=== PATIENT | male | born 1960 | race Caucasian/White ===

== ENCOUNTER 2024-06-30 13:17 | Inpatient (IN) | payer MEDICARE, OTHER, SELFPAY ==
[2024-06-30 11:02] LABS: Glucose - Point of Care 318 mg/dl (70-99)
[2024-06-30 11:04] VITALS: BMI 26.8
[2024-06-30 11:05] VITALS: BP 162/90
--- NOTE | 2024-06-30 11:05 | ED.CVA ---
History of Present Illness
General
Chief Complaint: CVA/TIA Symptoms
Source: patient and ambulance crew
Exam Limitations: none
Time Seen by Provider: 06/30/24 11:01
Onset of Stroke Symptoms
Onset of symptoms known: No
Time pt last seen normal is known: No
History of Present Illness
History of Present Illness:
64yoM with a history of hypertension, hyperlipidemia, and prediabetes presenting via EMS for evaluation of stroke symptoms. Patient reports waking up with tingling on his left side several days ago. His roommate saw him last night sitting on a
chair but he was not saying much. Patient states he felt like he was drunk this morning and was off balance but denies drinking any alcohol. Roommate found him on the ground this morning with left-sided weakness and EMS was activated. Glucose was
37 prehospital and he was given dextrose with improvement. His left-sided weakness has improved but he continues to have a facial droop. He does not take any blood thinners.
Phy Exam
General Physical Exam
General Presentation: well appearing
General age: appears stated age
General Skin: warm and dry
General Habitus: normal
General Mental: alert
ENT Exam
ENT Exam: normocephalic and other (No external signs of head trauma. No cervical spine tenderness.)
Eye Exam
Eye Exam: PERRL, EOMI and conjunctiva normal
Cardiovascular Exam
Cardiovascular Exam: regular rate/rhythm
Pulmonary Exam
Pulmonary Exam: lungs clear, no respiratory distress, no rales, no crackles and no rhonchi
Neurological Exam
Neurological Exam: alert and other (L facial droop noted with mild dysarthria. No drift in LUE/LLE. It takes several attempts for patient to follow commands.)
NIH Stroke Score
Level of Consciousness: 0 - Alert
LOC questions: 0-Answers both correctly
LOC Commands: 0-Performs both correctly
Best Gaze: 0-Normal
Visual [place]: 0=Normal, no visual loss
Facial palsy: 1=Minor paralysis
Motor - Right Arm: 0=No drift 10 seconds
Motor - Left Arm: 0=No drift 10 seconds
Motor - Right Le-No drift 5 seconds
Motor - Left Le-No drift 5 seconds
Limb Ataxia: 0-Absent
Sensation: 0-Normal
Best Language: 0-No aphasia
Dysarthria: 1-Mild slurring
Extinction and Inattention: 0-No abnormality
Total Score:: 2
[place] Coma Scale
Eye Opening: Spontaneous
Verbal Response: Oriented
Motor Response: Obeys Commands
GCS Total Score: 15
Skin Exam
Skin Exam: normal color and warm/dry
Psychiatric Exam
Psychiatric Exam: normal mood/affect
Course
Orders/Labs/Results
Orders:
Orders
06/30/24 11:01
CT Head & Neck Angio W/wo IV Urgent
Comment:
Reason For Exam: L sided weakness, facial droop
Cardiac Monitoring- Treatment ONCE
06/30/24 11:02
Electrocardiogram (*1) Urgent
Reason for Study: TIA/Stroke
EKG- Treatment ONCE
06/30/24 11:03
Urinalysis Reflex To Culture Urgent
CR Chest Portable - 1 View Urgent
Comment:
Reason For Exam: CVA
Reason Study Needs to be Portable: Unable to Transport
06/30/24 11:12
Complete Blood Count/With Diff Urgent
Comprehensive Metabolic Panel Urgent
PTT Urgent
Prothrombin Time Urgent
Total CK [Creatine Phosphokinase] Urgent
Troponin I Urgent
06/30/24 11:25
NEUROLOGY CONSULT Urgent
Consulting Provider: Cornelio Wilson
Was physician already notified: Yes
06/30/24 12:21
Aspirin Chewable [Low Strength Aspirin] 324 mg PO NOW STA
Clopidogrel Bisulfate [Plavix] 300 mg PO NOW STA
Carotid US [US Cerebrovascular] Routine
Comment:
Reason For Exam: right carotid
06/30/24 12:55
Admit/Transfer Patient As Directed
Co-Sign Provider:
Level of Care: Inpatient admission
Assign to:: Telemetry
Physician / Group: tony
Diagnosis: CVA
Reason for Telemetry: CVA/TIA
Date to Stop Telemetry: 07/03/24
Time to Stop Telemetry: 11:00
Reason for Hospitalization: CVA
Expected length of stay greater than two midnights?: Yes
ELOS- Estimated Length of Stay in days: 3
I certify the patient meets the requirements for IP care: Yes
PRN Pain Medication Management As Directed
May give lesser potent ordered pain med per pt: Yes
preference::
Protocol:: Medication orders for pain may be administered in a
manner that supports deferring to patient preference
when the pt is:
- Requesting an ordered lesser potent pain medication.
Least to most potent pain medications are defined
as: acetaminophen < NSAID < tramadol < opioids
(morphine, oxycodone, hydromorphone).
- Requesting a lesser dose of the same medication IF
ORDERED.
- Requesting a less intrusive route of administration
if both routes are prescribed by the provider (PO <
IV).
06/30/24 12:56
Code Status As Directed
Resuscitation Status: Full Code
06/30/24 18:00
Atorvastatin [Lipitor] 80 mg PO QPM
07/01/24 08:00
Aspirin Low Dose EC [Aspir Low (Enteric Coated)] 81 mg PO DAILY
Clopidogrel Bisulfate [Plavix] 75 mg PO DAILY
07/03/24 11:00
DC Protocol for Telemetry ONCE
Abnormal Lab Results
06/30/24 06/30/24
11:01 11:12
Abs Immat Gran (auto) 0.1 H 10^3/uL
(0-0.05)
Immature Gran % 0.8 H %
(0-0.5)
Sodium 134 L mmol/L
(135-145)
Potassium 5.3 H mmol/L
(3.5-5.1)
Glucose 314 H mg/dl
(70-99)
POC Glucose 318 H mg/dl
(70-99)
06/30/24 11:12
06/30/24 11:12
Vital Signs
Initial and Last Documented VS:
Initial Vital Signs
Pulse Resp Pulse Ox
83 17 97
06/30/24 11:04 06/30/24 11:04 06/30/24 11:04
Last Documented Vital Signs
Temp Pulse Resp BP Pulse Ox
98 F 90 16 155/95 95
06/30/24 11:05 06/30/24 13:00 06/30/24 13:09 06/30/24 13:00 06/30/24 12:00
MDM/Problems Addressed
Differential Diagnosis Includes:
64yoM presenting as a prehospital stroke alert. Started with L sided paresthesias a few days ago. [place] like he was drunk this morning and L sided weakness. Glucose 37 prehospital and he was given dextrose with improvement of his weakness. VSS,
Glucose 318 on arrival. There is a L sided facial droop and mild dysarthria noted. No extremity drift. Differential diagnosis includes but is not limited to: CVA, symptomatic hypoglycemia, traumatic intracranial hemorrhage
Initial ED plan: Check cardiac labs, coags, EKG, and CTA head/neck. Neurology at bedside on arrival.
*EKG
Interpreted by ED Provider?: Yes
EKG Intrepretation Date: 06/30/24
Heart Rate: 89
Rate: normal
Rhythm: sinus
[place]: normal axis
Interval: normal interval
QRS Pattern: normal QRS
Ischemia: no ischemia
*Critical Care Note
Total Time (30-74mins, 75-104mins- exclusive of procedures): Not Applicable
Update Note
Update Note:
Imaging shows evolving infarct in the R MCA territory. There is also an occlusion of the R ICA just distal to its origin as well as a distal R M1 occlusion. Neurology recommending DAPT and carotid ultrasound to determine if patient needs a
vascular surgery consult. Patient admitted for further management.
ED Attending Note
-
Portions of this chart may have been created with voice recognition software.� Occasional wrong word or��sound alike� substitutions may have occurred due to the inherent limitations of voice recognition software.
Discharge Plan
Departure
Patient Disposition: Admit
Date of Disposition: 06/30/24
Time of Disposition: 12:34
Presentation/result/management discussed w/ accepting MD/DO: Hospitalist
Discharge Problem:
Acute ischemic right MCA stroke
Interventions
Interventions:
*Risk Screen - Suicide Last Done: 06/30/24 11:08
*General Assessment Last Done: 06/30/24 11:17
*Neglect/Abuse Screening Last Done: 06/30/24 11:08
*ED- Fall Risk Assessment Last Done: 06/30/24 11:07
*ED COVID-19 Vaccine History Last Done: 06/30/24 11:07
ED- Pulmonary Assessment Last Done: 06/30/24 11:10
ED- Neurological Assessment Last Done: 06/30/24 11:03
ED- Cardiac Assessment Last Done: 06/30/24 11:10
ED Swallowing Screen Last Done: 06/30/24 11:35
[2024-06-30 11:24] LABS: % Basophils 1.4 % (0-2); % Eosinophils 2.8 % (0-6); % Immature Granulocytes 0.8 % (0-0.5); % Lymphocytes 28.9 % (20.5-51.1); % Monocytes 7.9 % (1.7-9.3); % Neutrophils 58.2 % (42.2-75.2); Absolute Basophils 0.1 10^3/uL (0-0.2); Absolute Eosinophils 0.2 10^3/uL (0-0.7); Absolute Immature Granulocytes 0.1 10^3/uL (0-0.05); Absolute Lymphocytes 2.2 10^3/uL (1.2-3.4); Absolute Monocytes 0.6 10^3/uL (0.1-0.6); Absolute Neutrophils 4.4 10^3/uL (1.4-6.5); Hematocrit 44.7 % (39.0-52.0); Hemoglobin 15.3 g/dL (13.0-18.0); Mean Corp Hgb Conc. 34.2 g/dL (33.0-37.0); Mean Corpuscular Hgb 30.7 pg (27.0-31.0); Mean Corpuscular Volume 89.8 fL (80.0-94.0); Mean Platelet Volume 9.2 fL (7.4-10.4); Nucleated Red Blood Cells % 0 % (-); Platelet Count 285 10^3/uL (130-400); Red Blood Cell Count 4.98 10^6/uL (4.70-6.10); Red Cell Dist. Width 12.9 % (11.5-14.5); White Blood Cell Count 7.6 10^3/uL (4.8-10.8)
[2024-06-30 11:33] LABS: ALT (SGPT) 18 U/L (0-50); AST (SGOT) 22 U/L (17-59); Albumin 4.6 g/dl (3.5-5.0); Alkaline Phosphatase 60 U/L (38-126); Blood Urea Nitrogen 15 mg/dl (9-20); Calcium 9.9 mg/dl (8.4-10.2); Carbon Dioxide 26 mmol/L (22-30); Chloride 99 mmol/L (98-107); Creatine Phosphokinase 70 U/L (55-170); Estimated Creatinine Clearance 88 ml/min; Glucose 314 mg/dl (70-99); Potassium 5.3 mmol/L (3.5-5.1); Sodium 134 mmol/L (135-145); Total Bilirubin 0.7 mg/dl (0.2-1.3); Total Protein 7.5 g/dl (6.3-8.2); eGFR > 60.00
--- NOTE | 2024-06-30 11:34 | CON.NEURO ---
Neuro Assessment/Plan
Assessment
Head CT imgs reviewed, hypodensity right frontal consistent with several days old stroke
CTA imgs rev'd, right ICA occlusion; distal right M1 occlusion
Stroke, large vessel etiology
not a TNK candidate unclear onset
Plan
ASA 324 + 81 daily
Plavix 300 + 75 x90 days
Lipitor 80
right ICA occlusion check carotid ultrasound, if there is any flow on the dopper then vascular surgery consult; if it is indeed 100% occluded then no intervention.
for large vessel intracranial disease, medical management was superior to stenting in [facility] trial
Consultation
Order
Date of Consultation: 06/30/24
Requesting Provider: Lorna Brown
Reason for Consult: stroke alert
Subjective/Objective
Subjective Data
Date of Service: June 30, 2024
from ED notes:
64yoM with a history of hypertension, hyperlipidemia, and prediabetes presenting via EMS for evaluation of stroke symptoms. Patient reports waking up with tingling on his left side several days ago. His roommate saw him last night sitting on a
chair but he was not saying much. Patient states he felt like he was drunk this morning and was off balance but denies drinking any alcohol. Roommate found him on the ground this morning with left-sided weakness and EMS was activated. Glucose was
37 prehospital and he was given dextrose with improvement. His left-sided weakness has improved but he continues to have a facial droop. He does not take any blood thinners.
He was given glucose and substantially improved
Objective Data
Vital Signs
Temp Pulse Resp BP Pulse Ox
36.6 C 82 16 162/90 97
06/30/24 11:05 06/30/24 11:05 06/30/24 11:24 06/30/24 11:05 06/30/24 11:05
Lab Results
06/30/24 11:12
06/30/24 11:12
Sodium 134 mmol/L (135-145) L 06/30/24 11:12
Potassium 5.3 mmol/L (3.5-5.1) H 06/30/24 11:12
BUN 15 mg/dl (9-20) 06/30/24 11:12
Glucose 314 mg/dl (70-99) H 06/30/24 11:12
Calcium 9.9 mg/dl (8.4-10.2) 06/30/24 11:12
Patient Allergies
NKA - No Known Allergies Allergy (Uncoded 07/14/07 10:35)
[2024-06-30 11:37] LABS: INR 0.99; PT 13.4 Sec (11.4-14.6)
[2024-06-30 11:38] LABS: APTT 24.3 Sec (23.4-35.0)
[2024-06-30 11:43] LABS: Troponin I < 0.012 ng/ml
[2024-06-30 12:00] VITALS: BP 141/84
--- NOTE | 2024-06-30 12:36 | HPS.HSE ---
Family Physician
-
Family Physician: * NONE
Chief Complaint
-
left sided weakness
History of Present Illness
64yoM with a history of hypertension, hyperlipidemia, and prediabetes presenting via EMS for evaluation of left sided weakness, off balance. patient stated tingling to his left hand a week ago. today he was off balance and noted to have left sided
weakness. he was not able to walk, so he lowered himself to crawl on the floor.patient stated dull BARRETT. denied dizzy or syncope. denied fever, chills, chest pain, sob. denied abdominal pain,n,v,d. denied dysuria or hematuria.
CT with the impression of Evolving nonhemorrhagic in the right middle cerebral artery territory.
Occlusion of the right internal carotid artery just distal to its origin with some possible minimal reconstitution via collaterals mid and distally.
No findings to suggest hemodynamically significant atherosclerosis of the proximal left internal carotid artery or findings to suggest left internal carotid artery dissection.
Patent anterior communicating artery with blood flow within the proximal intracranial internal vasculature bilaterally. Distal right M1 occlusion with some reconstitution of blood flow via collaterals distally.
Mildly dominant right vertebral artery. No findings to suggest vertebral artery dissection bilaterally.
Patient received aspirin, statin, Plavix in ER. Carotid arterial ultrasound ordered. UA ordered in ER. Admitted for further management
Medical History
Past Medical History
Past Medical History: Reports Other
Additional Past Medical History:
Hypertension
Hyperlipidemia
Past Surgical History: Reports Other
Additional Past Surgical History:
Wrist surgery
Social History
Tobacco: Smoker (1-2 times daily)
Alcohol: Occasional
Drug: None
Personal: Single
Living: With Roomate
Family History
Family History: Not pertinent
Allergies / Home Medications
Allergies reflects when Allergies were last updated in [employer].
Home Medications with original date entered in [employer]
Allergy/Medication List:
Allergies
Allergy/AdvReac Type Severity Reaction Status Date / Time
NKA - No Known Allergies Allergy Uncoded 07/14/07 10:35
Home Medications
No Meds [No Current Medications] 06/30/24
Review of Systems
-
Constitutional: Reports No Symptoms
EENT: Reports No Symptoms
Respiratory: Reports No Symptoms
Cardiac: Reports No Symptoms
Abdomen/GI: Reports No Symptoms
: Reports No Symptoms
Musculoskeletal: Reports No Symptoms
Skin: Reports No Symptoms
Neurological: Reports Weakness (Left-sided weakness)
Endocrine: Reports No Symptoms
Hematologic/Lymphatic: Reports No Symptoms
Psych: Reports No Symptoms
Physical Exam
Vital Signs
Vital Signs
Temp Pulse Resp BP Pulse Ox
98 F 86 20 141/84 95
06/30/24 11:05 06/30/24 12:00 06/30/24 12:00 06/30/24 12:00 06/30/24 12:00
Physical Exam
General: Well Developed, Well Nourished and No Apparent Distress
HEENT: NormoCephalic, Moist mucous membranes and Atraumatic
Respiratory: Clear
Cardiac: S1/S2 and Regular Rhythm; No Murmur or Rub
GI: Soft, Non Tender, Non Distended and Normal Bowel Sounds; No Organomegaly
Rectal: Deferred by Provider
Musculoskeletal: No Clubbing, No Cyanosis and No Edema
Skin: No Rash
Neuro: Nonfocal/grossly intact and Other (Left facial droop)
Laboratory Results
-
06/30/24 11:12
06/30/24 11:12
Laboratory Results
PT 13.4 Sec (11.4-14.6) 06/30/24 11:12
INR 0.99 06/30/24 11:12
APTT 24.3 Sec (23.4-35.0) 06/30/24 11:12
Total Bilirubin 0.7 mg/dl (0.2-1.3) 06/30/24 11:12
AST 22 U/L (17-59) 06/30/24 11:12
ALT 18 U/L (0-50) 06/30/24 11:12
Alkaline Phosphatase 60 U/L (38-126) 06/30/24 11:12
Troponin I < 0.012 ng/ml 06/30/24 11:12
Data Reviewed
-
CT Scan: Report Reviewed by me
Lab Data: Labs Reviewed by me
Impression/Plan
-
# Left-sided paresthesias/left-sided weakness secondary to MCA infract with right ICA occlusion
- Aspirin plus Plavix
- Carotid ultrasound
- Obtain A1c, lipid profile
- PT/OT consulted
- Neurology evaluation
- Head neck CTA with impression of evolving nonhemorrhagic in the right middle cerebral artery territory.Occlusion of the right internal carotid artery just distal to its origin with some possible minimal reconstitution via collaterals mid and
distally.No findings to suggest hemodynamically significant atherosclerosis of the proximal left internal carotid artery or findings to suggest left internal carotid artery dissection.Patent anterior communicating artery with blood flow within the
proximal intracranial internal vasculature bilaterally. Distal right M1 occlusion with some reconstitution of blood flow via collaterals distally.Mildly dominant right vertebral artery. No findings to suggest vertebral artery dissection bilaterally.
# Pseudo hyponatremia/hyperkalemia likely dehydration
- Sodium 134, potassium 5.3
-Corrected sodium 139
-Fluids
-BMP in a.m.
# Hyperglycemia/prediabetes
-as per ER note he was hypoglycemic, received dextrose by EMS
-Blood sugar elevated in 300s
-Sliding scale
-CHO diet
# Essential hypertension
# Hyperlipidemia
-non compliance with meds
# Nicotine dependence
Smokes-2 pack daily
- Nicotine patch
-Encourage smoking cessation
#DVT prophylaxis
- SCDs
# CODE STATUS
- Full code
[2024-06-30] MEDS: PLAVIX 300 MG PO (12:40)
[2024-06-30] MEDS: LOW STRENGTH ASPIRIN 324 MG PO (12:40)
[2024-06-30 13:00] VITALS: BP 155/95
--- NOTE | 2024-06-30 13:10 | W.PN.UPDATE ---
Update Note
Progress Note Update
This is an addendum to the H&P dictated by Gilberto Gauthier on 06/30/2024.
I saw and examined the patient.
The ELEVATOR WORKER or PA's note was reviewed and I agree with the note.
Comment:
Patient is 64 years old male history of hypertension, hyperlipidemia, borderline prediabetes, smoker, came into the hospital with numbness left side of his body. Patient has been experiencing paresthesias for several days and this morning he woke
up being dizzy off balance with left-sided weakness. LKN last night. Glucose prehospital 37 and given glucose with improvement. Denies chest pain or shortness of breath. Denies fevers or chills. He had a CTA of the head and neck with
significant right carotid stenosis. Neurology consulted in the ED. He was referred to hospitalist for further evaluation.
Physical exam:
General: Acutely ill
HEENT: Normocephalic, Atraumatic and Moist Mucous Membranes
Respiratory: Clear to Auscultation; Negative Wheezes, Rales or Rhonchi
Cardiac: Regular Rhythm and S1/S2
GI: Soft, Nontender and Nondistended
Musculoskeletal: No Clubbing, No Cyanosis and No Edema
Neuro: Awake, Alert and Oriented, left cranial nerve deficit, no focal weakness, no sensory deficit
Psych: Calm
A/P:
Stroke--> antiplatelets, statins, carotid ultrasound to evaluate if candidate for revascularization or not. Neurology consult. NIH score. PT OT luciano. Will give further recommendations based on his clinical course.
[2024-06-30 14:37] VITALS: BP 151/80
--- NOTE | 2024-06-30 15:45 | CM ---
Addendum entered by ALISON Perry 06/30/24 16:08:
went back to see if patient has his medicare card. He does not. only has Social security card.
Original Note:
Met patient in room and reviewed chart. Patient was not able to answer all questions. This may be due to his being hard of hearing or the CVA.
He did say he does have Medicare. He is retired, drives. [facility] P[facility] is [facility] [place]. He was able to produce his [facility] healthcare card. Copies made and provided to Admissions with request they call and report his admit since VA is secondary to his
Medicare.
Patient said he rents a room in his house to Rell who called EMS when he was found on floor. CM received permission to speak to Rell. 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 He is now retired and his Medicare card is in
his cell phone portfolio.
Rell phone is [phone].
Rell knows patient has a brother but does not have any phone number for him.
Discharge needs unknown at this time. Stroke work up in place.
CM to follow for needs at discharge.
--- NOTE | 2024-06-30 15:52 | PTOTSP ---
Speech Therapy
Presentation Patient's speech appeared to be dysarthric (imprecise consonant production) which does not appear to impact intelligiblity. Patient denied communicative deficits. Noted left sided weakness; patient stated this has been going on for
about [address] STREET PHOTOGRAPHER observed patient with several bites of cracker and sips of thin liquid in which patient appeared to tolerate as he did not exhibit any overt clinical s/sx of aspiration or difficulty with mastication/ manipulation. Patient denied
dysphagia complaints.
Recommendations:
1) Regular consistency solids and thin liquids
2) Aspiration precautions
3) Medications as tolerated
4) Consider cognitive and/or speech language evaluation
Plan: STREET PHOTOGRAPHER will continue to follow to ensure tolerance of diet and possible additional evaluations ; pending hospitalization.
[2024-06-30 16:15] LABS: Glucose - Point of Care 108 mg/dl (70-99)
[2024-06-30] MEDS: NICODERM TRANSDERMAL 21 MG TRANSDERM (17:13)
[2024-06-30] MEDS: LIPITOR 80 MG PO (17:14)
[2024-06-30 19:40] VITALS: BP 142/84
[2024-06-30 21:16] LABS: Glucose - Point of Care 114 mg/dl (70-99)
--- NOTE | 2024-06-30 22:45 | RR ---
A Rapid Response was called on this patient, please see Rapid Response form.
While checking on pt noted that he was not able to answer questions and unable to move his L arm. He was also unable to lift L leg and had L sided inattention which was not noted on previous assessment. NIH 15 and was previously 4. BS 114. VSS.
RR and stroke alert called. Pt sent to CT scan.
[2024-06-30 23:00] VITALS: BP 139/75
--- NOTE | 2024-06-30 23:18 | RR ---
A Rapid Response was called on this patient, please see Rapid Response form.
Stroke alert called by primary RN due to left sided neglect/flaccid upper/lower extrem.
slight partial facial droop appreciated on L side.
Taken for STAT head CT.
Returned to pt. room.
[2024-07-01] VITALS (12 sets, daily range): BP systolic 110–159; BP diastolic 69–97; PULSE 90–91; O2SAT 82–93; BMI 25.4
--- NOTE | 2024-07-01 03:18 | W.PN.UPDATE ---
Update Note
Progress Note Update
While checking on pt nurse noted that he was not able to answer questions and unable to move his L arm. He was also unable to lift L leg and had L sided inattention which was not noted on previous assessment. NIH 15 and was previously 4. BS 114.
VSS. RR and stroke alert called. Pt sent to CT scan. Result shows evolving right MCA territory infarct with a more conspicuous larger area of infarct seen in the right frontal temporal lobe compared to prior. No evidence of intracranial hemorrhage.
Hyperattenuation of the right MCA correlating with thrombus as seen previously continues. Dr. Cornelio Wilson neurology service notes his evolving CVA has been going on for days and he is out of the window for TNK or other aggressive measures.
[2024-07-01 04:38] LABS: Urine Albumin 1+ (Neg - Trace); Urine Bilirubin Negative (Negative); Urine Character Clear (Clear); Urine Color Yellow; Urine Glucose 2+ (Negative); Urine Ketone Negative (Negative); Urine Leukocyte 1+ (Negative); Urine Nitrite Negative (Negative); Urine Occult Blood Negative (Negative); Urine Urobilinogen 1+ (Neg - 1+)
[2024-07-01 05:43] LABS: Urine Squamous Cell 0-2 /LPF (Few)
[2024-07-01 05:44] LABS: Urine Bacteria Few (Negative); Urine Red Blood Cell 0-2 /HPF (0-2)
--- NOTE | 2024-07-01 06:02 | PTCARENOTE ---
Pt attempting to get out of bed through the night but does not realize that he is unable due to his L sided paralysis. Stated he had to go to the bathroom and did not want to use the urinal. Attempted and assisted to side of bed with assist of 2
people after explanation but unable to void. Bladder scanned for 408 and straight cathed for 420ml zander urine as per order. Bed alarm placed for pt safety and bed in lowest position. NIH as documented.
[2024-07-01 06:08] LABS: Glucose - Point of Care 125 mg/dl (70-99)
[2024-07-01 06:53] LABS: Blood Urea Nitrogen 14 mg/dl (9-20); Calcium 9.3 mg/dl (8.4-10.2); Carbon Dioxide 20 mmol/L (22-30); Chloride 102 mmol/L (98-107); Estimated Creatinine Clearance 100 ml/min; Glucose 125 mg/dl (70-99); HDL Cholesterol 47 mg/dl; LDL Cholesterol, Calculated 100 mg/dl; Potassium 4.4 mmol/L (3.5-5.1); Sodium 134 mmol/L (135-145); Total Cholesterol 187 mg/dl (50-199); Triglyceride 202 mg/dl (10-149); Very Low Density Lipoprotein 40 mg/dl (0-30); eGFR > 60.00
--- NOTE | 2024-07-01 07:29 | W.PN.HOSP.TC ---
Addendum entered and electronically signed by Clive Cuevas MD 07/01/24 17:33:
will do echo and mri in am
Addendum entered and electronically signed by Clive Cuevas MD 07/01/24 15:07:
Reevaluated patient along with neurology due to staring spells and some shakiness in left arm. Neuro recommends EEG in am and hold on AED for now.
Original Note:
Today's Communication/Plan
-
Antiplatelet. Monitor neurological status.
Assessment / Plan
Assessment / Plan
Physical exam:
General: Acutely ill
HEENT: Normocephalic, Atraumatic and Moist Mucous Membranes
Respiratory: Clear to Auscultation; Negative Wheezes, Rales or Rhonchi
Cardiac: Regular Rhythm and S1/S2
GI: Soft, Nontender and Nondistended
Musculoskeletal: No Clubbing, No Cyanosis and No Edema
Neuro: Awake, Alert and Disoriented, left facial droop, left hemiparesis.
Psych: Limited insight
A/P:
Acute worsening ischemic stroke:
Etiology likely large vessel in right MCA territory
Seen CTA of the head and neck and CT scan.
Repeat CT head in 24 hours
Not a candidate for TNK per neurology due to out of time window
PT OT speech therapy eval
If unable to swallow we will do aspirin rectally
Transfer to higher level of care today
N.p.o. and IV fluids for now
If no improvement over 24 hours would consider NG tube
Follow-up further neurology recommendation
Prognosis guarded
Right internal carotid stenosis:
Correlation with his acute stroke
Plan for carotid ultrasound and if complete occlusion no need for any interventions, but if not then might need vascular surgery evaluation
Hyponatremia:
Monitor sodium
Hyperkalemia:
Resolved
Prediabetes mellitus:
Insulin sliding scale
Hyperlipidemia:
Continue statin
Smoker:
On nicotine patch
DVT prophylaxis:
Start Lovenox SQ
CODE STATUS:
Full code
Total Critical Care Time__45___ minutes. I was immediately available to the patient and staff. I personally examined, reviewed labs, diagnostic images/reports, interpretations, treatment plans, discussed patient care with other providers and
family or caregivers (if patient is unable to make decisions), entered orders as appropriate and documented the medical record.
Anticipated Discharge: > 48 hours
Subjective/Interval History
-
Date of Service: July 01, 2024
Patient worsened overnight. He now has had dense left hemiparesis. Alert and slurred speech. Afebrile
Objective Data
-
Labs:
Laboratory Results
07/01/24
05:36
Sodium 134 L
Potassium 4.4
Chloride 102
Carbon Dioxide 20 L
BUN 14
Creatinine 0.7
Glucose 125 H
Calcium 9.3
Vital Signs:
Vital Signs
Temp Pulse Resp BP Pulse Ox
97.8 F 99 20 118/73 95
07/01/24 03:26 07/01/24 03:26 07/01/24 03:26 07/01/24 03:26 07/01/24 03:26
I&O
06/30/24 07/01/24 07/02/24
06:59 06:59 06:59
Intake Total 480 / 480
Output Total 700 / 700
Balance -220 / -220
[2024-07-01 09:34] LABS: Glycohemoglobin (HgbA1c) 5.4 % (4.0-5.6)
[2024-07-01] MEDS: NICODERM TRANSDERMAL 21 MG TRANSDERM (10:39)
[2024-07-01] MEDS: ASPIR LOW (ENTERIC COATED) PO (10:39)
[2024-07-01] MEDS: NSS 1000 IV ×2 (12:03→23:25)
[2024-07-01 12:08] LABS: Glucose - Point of Care 114 mg/dl (70-99)
--- NOTE | 2024-07-01 12:34 | PTCARENOTE ---
Rec'd pt from 4W for worsning CVA symptoms. Vital signs stable. Pt with left arm flacid, left leg weak, normal sensation. Resting comfortably at this time.
--- NOTE | 2024-07-01 13:51 | W.PN.NEURO.1 ---
Today's Communication / Plan
-
Carotid U/S in AM
Neuro Assessment/Plan
Assessment
Head CT imgs reviewed, hypodensity right frontal consistent with several days old stroke
CTA imgs rev'd, right ICA occlusion; distal right M1 occlusion, can't access the M1 for thrombectomy through an occluded carotid
Stroke, large vessel etiology
not a TNK candidate unclear onset
Stroked more in the early am 07/01, still not a TNK candidate for this evolving stroke
Plan
ASA 81 daily
Plavix 75 x90 days
Lipitor 80
right ICA occlusion check carotid ultrasound, if there is any flow on the dopper then vascular surgery consult though I'm not sure there's much point now that he's complete left hemiparesis; if it is indeed 100% occluded then no intervention.
Subjective/Objective
Subjective Data
Date of Service: July 01, 2024
last night patient NIHSS worsened from 4 to 15, had head CT showing evolving R MCA stroke with larger infarct
Objective Data
Vital Signs
Temp Pulse Resp BP Pulse Ox
37.4 C 86 18 159/69 94
07/01/24 12:04 07/01/24 11:00 07/01/24 11:00 07/01/24 11:00 07/01/24 11:00
Lab Results
06/30/24 11:12
07/01/24 05:36
PT 13.4 Sec (11.4-14.6) 06/30/24 11:12
INR 0.99 06/30/24 11:12
APTT 24.3 Sec (23.4-35.0) 06/30/24 11:12
Sodium 134 mmol/L (135-145) L 07/01/24 05:36
Potassium 4.4 mmol/L (3.5-5.1) 07/01/24 05:36
BUN 14 mg/dl (9-20) 07/01/24 05:36
Glucose 125 mg/dl (70-99) H 07/01/24 05:36
Calcium 9.3 mg/dl (8.4-10.2) 07/01/24 05:36
LDL Cholesterol, Calc 100 mg/dl 07/01/24 05:36
Patient Allergies
NKA - No Known Allergies Allergy (Uncoded 07/14/07 10:35)
Physical Exam
-
AAO x3, speech soft, clear, language intact
Visual guaman - unable to clearly assess
EOMI, dense left facial droop
Left side flacid
[2024-07-01] MEDS: ASPIRIN 300 MG RECTAL (14:26)
--- NOTE | 2024-07-01 14:46 | PTCARENOTE ---
Pt with intermittent staring episodes and some confusion. RN updated Dr. Cuevas and Dr. Wilson via TT
--- NOTE | 2024-07-01 15:25 | PTOTSP ---
Speech Therapy
Patient had a decline in his mental status (06/30) in which patient was transferred to IMU. Orders received.
07/01 chart, patient's temp is 99.4F, WBC is WNL (7.6), and is NPO (due to mental status).
06/[address]: 'Progression of evolving nonhemorrhagic infarct in the right MCA territory in comparison to study earlier in same day.
ASPECT score: 9'
NIH score was 15 this AM which is drastic from NIH 4 06/30.
Presentation: Patient was oriented to self and location. Not oriented to date or year. Patient's speech appeared to be more dysarthric than it was 06/30, characterized by imprecise consonant production, low volume, and short utterances. Patient also
demonstrated an increased left sided facial droop and extremity weakness in comparison to 06/30 session.
Swallowing: METER/RELAY TECHNICIAN trialed ice chips x4 in which patient demonstrated intermittent wet, weak coughing episodes, prolonged oral containment, and delayed swallow response.
Trials ended when patient's mentation appeared to worsen as he abruptly gazed off to the left side, unable to answer questions, and appeared lethargic. This lasted ~1 minute and the patient returned back to his mental state. METER/RELAY TECHNICIAN asked him
orientation questions in which patient was slow to respond but was able to reply with his name and location. Patient stated he did not recall the episode of lethargy.
Given his worsening Head CT, wax/wane alertness, and overall clinical presentation, recommend NPO at this time. MD and RN aware.
Recommendations:
1) NPO
2) Aspiration precautions
3) Vigorous oral care
4) Medications not by mouth
5) Consider VSE when appropriate
6) Consider speech evaluation when appropriate
Plan: METER/RELAY TECHNICIAN will continue to follow for advancement; pending hospitalization.
--- NOTE | 2024-07-01 15:56 | PTCARENOTE ---
Dr. morales and Dr. Singleton at bedside. Aware of worsening NIHSS and symptoms. Plan for Carotid US in AM.
[2024-07-01] MEDS: LOVENOX 40 MG SC (17:31)
[2024-07-01 18:08] LABS: Glucose - Point of Care 105 mg/dl (70-99)
[2024-07-02] VITALS (14 sets, daily range): BP systolic 114–172; BP diastolic 68–118; PULSE 84–93; O2SAT 96; BMI 25.9
[2024-07-02 00:32] LABS: Glucose - Point of Care 92 mg/dl (70-99)
--- NOTE | 2024-07-02 01:04 | PTCARENOTE ---
Received pt at change of shift. NIHSS performed at change of shift with dayshift RN. No change from previous assessments. NIH score of 15. Pt experiencing hallucinations. Pt thinks there are raccoons in his room and is not able to be
reoriented. Pt was able to remember a partial number for his brother but can not remember the remaining numbers. Q2T. Bed alarm active. Call banegas within reach.
[2024-07-02 04:33] LABS: Hematocrit 40.4 % (39.0-52.0); Hemoglobin 14.3 g/dL (13.0-18.0); Mean Corp Hgb Conc. 35.4 g/dL (33.0-37.0); Mean Corpuscular Hgb 30.6 pg (27.0-31.0); Mean Corpuscular Volume 86.3 fL (80.0-94.0); Mean Platelet Volume 8.8 fL (7.4-10.4); Platelet Count 278 10^3/uL (130-400); Red Blood Cell Count 4.68 10^6/uL (4.70-6.10); Red Cell Dist. Width 12.7 % (11.5-14.5); White Blood Cell Count 11.9 10^3/uL (4.8-10.8)
[2024-07-02 05:09] LABS: Blood Urea Nitrogen 16 mg/dl (9-20); Calcium 9.3 mg/dl (8.4-10.2); Carbon Dioxide 21 mmol/L (22-30); Chloride 107 mmol/L (98-107); Estimated Creatinine Clearance 100 ml/min; Glucose 92 mg/dl (70-99); Potassium 4.4 mmol/L (3.5-5.1); Sodium 137 mmol/L (135-145); eGFR > 60.00
[2024-07-02 06:30] LABS: Glucose - Point of Care 92 mg/dl (70-99)
[2024-07-02] MEDS: ASPIRIN 300 MG RECTAL (07:53)
[2024-07-02] MEDS: NICODERM TRANSDERMAL 21 MG TRANSDERM (07:53)
--- NOTE | 2024-07-02 08:51 | PTCARENOTE ---
Patient received from mid level net developer. Patient resting comfortably in bed. AAO x1 mostly to self. VSS. No events noted overnight. No complaints of pain at this time. NIH done at bedside with mid level net developer, score was 16. NSS @ 85mL/hr through IV.
Speech and PT to see patient. Patient scheduled for CT, US, Xray, and possibly an MRI. Call banegas in reach.
--- NOTE | 2024-07-02 09:22 | EEG.RPT ---
Electroencephalogram Report
Recording
Date of EE07/02/24
Type of EEG: Routine
Length of EEG recordin minutes
Done with Video Recording: Yes
Patient Status: Inpatient
Recording Conditions: Awake, Drowsy and Asleep
Hyperventilation Performed: No
Photic Stimulation Performed: Yes
Report
LESS THAN 1 HOUR EEG REPORT
LESS THAN 1 HOUR EEG INTERPRETATION:
Moderately abnormal EEG for age due to diffuse bihemispheric slowing
CLINICAL CORRELATION:
This study was suggestive of diffuse cortical dysfunction without focal abnormality. No seizures were recorded.
Clinical correlation is advised.
METHODS:
A 21 channel digitized electroencephalogram (EEG) was performed at the bedside. The 10/20 international system of electrode placement was used with ECG and lateral/vertical eye movements recorded. Persyst QEEG monitoring was performed.
QUALITY OF STUDY:
Fair due to muscle artifact
ELECTROENCEPHALOGRAPHER IMPRESSION(S):
Background
There was a low to medium amplitude fairly well organized at times anterior-posterior voltage gradient of theta frequency
There were no significant asymmetries of background activity noted.
Sleep
Drowsiness present
Photic Stimulation
Failed to activate the record.
ECG
Normal sinus rhythm
[2024-07-02 11:26] LABS: Glucose - Point of Care 94 mg/dl (70-99)
--- NOTE | 2024-07-02 12:28 | W.PN.HOSP.TC ---
Today's Communication/Plan
-
Vascular surgery consult
Assessment / Plan
Assessment / Plan
Impression:
Patient is 64 years old male history of hypertension, hyperlipidemia, borderline prediabetes, smoker, came into the hospital with numbness left side of his body. Patient has been experiencing paresthesias for several days and this morning he woke
up being dizzy off balance with left-sided weakness. LKN last night. Glucose prehospital 37 and given glucose with improvement. Denies chest pain or shortness of breath. Denies fevers or chills. He had a CTA of the head and neck with
significant right carotid stenosis. Neurology consulted in the ED.
07/02
IT SYSTEMS ADMINISTRATOR called on 07/01 for worsening neurologic, repeat CT shows progressive stroke, patient upgraded to IMU.
MRI pending, echo pending.
Updated brother by the
Assessment/plan:
Acute worsening ischemic stroke:
Etiology likely large vessel in right MCA territory
Seen CTA of the head and neck and CT scan.
Repeat CT head in 24 hours
Not a candidate for TNK per neurology due to out of time window
PT OT speech therapy eval
If unable to swallow we will do aspirin rectally
Transfer to higher level of care today
N.p.o. and IV fluids for now
If no improvement over 24 hours would consider NG tube
Follow-up further neurology recommendation
Prognosis guarded
07/02
MRI pending, Echo pending, brother updated by phone.
Right internal carotid stenosis:
Correlation with his acute stroke
Plan for carotid ultrasound and if complete occlusion no need for any interventions, but if not then might need vascular surgery evaluation.
Will obtain vascular surgery evaluation
Hyponatremia:
Improved
Hyperkalemia:
Resolved
Prediabetes mellitus:
Insulin sliding scale
Hyperlipidemia:
Continue statin
Smoker:
On nicotine patch
CODE STATUS: Full code
DVT prophylaxis: Lovenox
Diet: N.p.o.
Total time spent on today's encounter was 75 minutes which included time spent in counseling the patient/family regarding diagnosis and treatment plan as listed above, goals of care, and symptom management. Case was discussed with nursing staff,
specialists, and care coordinators/case management. All labs and imaging personally reviewed by me. Remainder the time spent in detailed review of previous records, lab data, imaging, and other medical provider documentation.
Anticipated Discharge: > 48 hours
Subjective/Interval History
-
Date of Service: July 02, 2024
Patient seen and examined at bedside, while doing EEG.
Patient is awake but not fully oriented.
Was able to reach brother by phone Palak [phone].
I updated the brother.
Objective Data
-
Labs:
Laboratory Results
07/02/24
04:20
WBC 11.9 H
Hgb 14.3
Hct 40.4
Plt Count 278
Sodium 137
Potassium 4.4
Chloride 107
Carbon Dioxide 21 L
BUN 16
Creatinine 0.7
Glucose 92
Calcium 9.3
Vital Signs:
Vital Signs
Temp Pulse Resp BP Pulse Ox
97.9 F 63 17 125/68 95
07/02/24 11:07 07/02/24 06:00 07/02/24 06:00 07/02/24 06:00 07/02/24 10:36
I&O
07/01/24 07/02/24 07/03/24
06:59 06:59 06:59
Intake Total 480 / 480 1870 / 1870
Output Total 700 / 700 650 / 650
Balance -220 / -220 1220 / 1220
Physical Exam
-
General: Slurred Speech and Appears Chronically Ill
HEENT: Atraumatic, Moist Mucous Membranes, No Ptosis, PERRLA and Nose Appears Normal
Respiratory: Rales, Rhonchi and Non Labored Respirations
Cardiac: Regular Rhythm and S1/S2
Breast: Deferred by me
GI: Soft, Nontender, Nondistended and Normal Bowel Sounds
Genito-urinary: No Costovertebral Tender
Musculoskeletal: No Edema
Skin: Warm
Neuro: Slurred Speech and Other (Awake not fully oriented); Negative Nonfocal/Grossly Intact (Left-sided hemiparesis)
Psych: Calm
Data Reviewed
-
Diagnostic Radiology: Image personally visualized and interpreted and Report Reviewed by me
CT Scan: Image personally visualized and interpreted and Report Reviewed by me
Ultrasound: Image personally visualized and interpreted and Report Reviewed by me
MRI: Image personally visualized and interpreted and Report Reviewed by me
Medical Tests (Nuc Med, Echo etc): Image personally visualized and interpreted and Report Reviewed by me
Labs: Labs Reviewed by me
Old Records: Reviewed
--- NOTE | 2024-07-02 12:34 | CARDSERVLU ---
Echocardiogram with Lumason completed after protocol screening completed. Allergies verified.
Patent IV site: _Right arm 20 G Pc antecubital____
IV site flushed with 0.9% NaCl pre and post administration.
Diluted bolus method utilized to enhance visualization of ventricular candelaria.
Total volume given: __3__ mL
Patient tolerated all procedures well without complications.
[2024-07-02] MEDS: NSS 1000 IV (12:42)
--- NOTE | 2024-07-02 13:05 | CON.VAS ---
Addendum entered and electronically signed by Mayito Alvarado III, MD 07/03/24 10:50:
This patient was seen and examined in collaboration with REJI Mc. I agree with the history and physical exam as well as the assessment and plan. I have the following additions:
Patient admitted with right hemispheric
Presented to the emergency department June 30, 2024
At that time noted to have occluded right internal carotid artery on CTA
Consulted today for evaluation of carotid
Patient currently is nonverbal and densely hemiparetic on the left
I personally reviewed the CT angiogram of the head and neck as well as the carotid duplex.
By my interpretation the right internal carotid artery demonstrates a short patent stump of proximal artery which then occludes distally. The occlusion extends through the skull base. Left carotid is widely patent with no significant stenosis
identified. Vertebral arteries are patent bilaterally with the right appearing dominant.
Carotid duplex demonstrates string sign in the proximal internal carotid artery.
Would not recommend surgical intervention for carotid artery occlusion. Neurology following. Continue medical therapy per neurology recommendations.
Signed:
Mayito Alvarado III, MD
Vascular Surgery
[facility] [place]
Original Note:
Consultation
Consultation Request
Date/Time Consultation Performed: 07/02/2024 1300
Requesting Provider: Hospitalist
Performing Provider: Staci Lainez GALLEY STRIPPER-C for Mayito Alvarado III, MD
Reason for Consultation: Right Occlusion of the right internal carotid artery
Medical History
-
Chief Complaint: Stroke
History of Present Illness:
This is a 64 year old male patient with significant past medical history for hypertension, hyperlipidemia, and prediabetes who presented to [facility] ED on 06/30/24 with reports of several days of left hand/side paraesthesia, accompanied with
unbalance gait. He had a CT Angio of head/neck as part of ED work up which demonstrated evolving nonhemorrhagic stroke in the right middle cerebral artery territory prompting admission with occlusion of the right internal carotid artery. He was
subsequently admitted to the hospital for stroke work up, when he was noted to have worsening left sided weakness to now include left arm and leg weakness/paralysis. He currently has inattention and limited speech, thus HPI is contributed by chart
review. He does shake his head no to pain. Vascular surgery is consulted for right carotid artery occlusion.
Past Medical History
Past Medical History: HTN and Other (hyperlipidemia and prediabetes)
Past Surgical History: Orthopedic (Wrist surgery)
Social History
Tobacco: Smoker (1-2 times daily per chart review )
Allergies / Home Medications
Allergy/AdvReac Type Severity Reaction Status Date / Time
NKA - No Known Allergies Allergy Uncoded 07/14/07 10:35
�Medication �Instructions �Recorded �Confirmed �Type
No Meds [No Current Medications] 06/30/24 06/30/24 History
Review of Systems
-
Unable to obtain full review of systems at this time due to: Acuity
Physical Exam
Vital Signs
Temp Pulse Resp BP Pulse Ox
97.9 F 63 17 125/68 95
07/02/24 11:07 07/02/24 06:00 07/02/24 06:00 07/02/24 06:00 07/02/24 10:36
Lab Results
07/02/24 04:20
07/02/24 04:20
Troponin I < 0.012 ng/ml 06/30/24 11:12
Physical Exam
General: No Apparent Distress
HEENT: Normocephalic, Anicteric and Other (left sided facial droop )
Respiratory: Non Labored Respirations
Cardiac: Negative JVD
GI: Soft, Non Tender and Non Distended
Musculoskeletal: No Edema
Skin: Warm
Neuro: Other (Minimal speech, aware of self and place, cannot articulate recent medical events, complete paralysis of LUE and LLE, mobility present in RUE, cannot fully assess RLE as patient cannot completely follow commands)
Assessment / Plan
-
Assessment: 64 year old male with right MCA territory stroke and occluded right carotid artery per CT angio head and neck on 06/30/24
Plan:
Carotid US pending, surgical plan per vascular attending following carotid US results.
--- NOTE | 2024-07-02 13:17 | CM ---
Patient with Dx CVA. Room air. Receiving IVF. Receiving Lovenox SQ. NPO - ST for PO trials. PT/OT recommend acute rehab.
Spoke with Cassie ROSADO; informed her that patient likely had Medicare and VA Insurance. She was able to speak with admissions and confirm patient is Medicare prime and VA secondary. CM faxed patient's VA card to Admitting.
Spoke with Carlos Manuel, Nurse who was able to obtain family contact for patient's brother Josias in patients phone.
Met with patient; patient was alert and he seemed to be able to respond verbally/answer questions intermittently. CM placed phone call to patient's brother Josias Strong on speaker phone in patient's room; left message requested callback for d/c
planning. Patient then stated 'tell my brother to get his ass in here'. Asked him if his brother lived nearby and he said 'he lives near me'. Asked patient if he would want to go to [facility] and he did not respond verbally.
Message to Dr Carolina requesting Physiatry Eval.
Spoke with [facility] Liaison; proactive referral placed for [facility]. Physiatry Consult is pending.
CM continuing to follow.
Plan follow up after seen by Ore Roaster and follow patient's progress with oral intake/diet.
Plan probable acute rehab.
[2024-07-02 17:40] LABS: Glucose - Point of Care 92 mg/dl (70-99)
[2024-07-02] MEDS: LOVENOX 40 MG SC (18:06)
--- NOTE | 2024-07-02 23:36 | PTCARENOTE ---
assumed care of patient. pt is AAOx2-3, expressive and receptive aphasia noted. able to tell this RN correct age and year without issues. left sided neglect noted, left arm paralysis and right leg paralysis. able to wiggle some toes on left foot.
bed alarm on. son and daughter in law at bedside, provided with update. RA 96%. pickett intact draining yellow. IV fluids renewed. NIH 15. care ongoing.
[2024-07-02 23:39] LABS: Glucose - Point of Care 81 mg/dl (70-99)
[2024-07-03] VITALS (10 sets, daily range): BP systolic 123–165; BP diastolic 62–90; PULSE 87; O2SAT 98
[2024-07-03] MEDS: NSS 1000 IV ×2 (01:41→15:14)
[2024-07-03 05:23] LABS: Glucose - Point of Care 94 mg/dl (70-99)
[2024-07-03 05:32] LABS: Hematocrit 40.1 % (39.0-52.0); Hemoglobin 14.2 g/dL (13.0-18.0); Mean Corp Hgb Conc. 35.4 g/dL (33.0-37.0); Mean Corpuscular Hgb 30.9 pg (27.0-31.0); Mean Corpuscular Volume 87.4 fL (80.0-94.0); Mean Platelet Volume 9.1 fL (7.4-10.4); Platelet Count 314 10^3/uL (130-400); Red Blood Cell Count 4.59 10^6/uL (4.70-6.10); Red Cell Dist. Width 12.6 % (11.5-14.5); White Blood Cell Count 12.1 10^3/uL (4.8-10.8)
[2024-07-03 05:53] LABS: Blood Urea Nitrogen 17 mg/dl (9-20); Calcium 8.9 mg/dl (8.4-10.2); Carbon Dioxide 16 mmol/L (22-30); Chloride 108 mmol/L (98-107); Estimated Creatinine Clearance 100 ml/min; Glucose 88 mg/dl (70-99); Potassium 4.4 mmol/L (3.5-5.1); Sodium 138 mmol/L (135-145); eGFR > 60.00
[2024-07-03] MEDS: ASPIRIN 300 MG RECTAL (07:47)
[2024-07-03] MEDS: NICODERM TRANSDERMAL 21 MG TRANSDERM (07:47)
--- NOTE | 2024-07-03 08:33 | PTCARENOTE ---
Patient received from film processing shift supervisor. Patient resting comfortably in bed. AAO x1 continues to be mostly to self. VSS. No events noted overnight. No complaints of pain at this time. NIH done this AM, score was 15. Patient slowly regaining some
feelings on left side. NSS @ 85mL/hr continue through IV. Speech and PT/OT to see patient again today. Possible video swallow today. MRI to be done today. Call banegas in reach.
[2024-07-03 11:53] LABS: Glucose - Point of Care 111 mg/dl (70-99)
--- NOTE | 2024-07-03 13:46 | W.PN.HOSP.TC ---
Today's Communication/Plan
-
Passed video swallow eval
Assessment / Plan
Assessment / Plan
Impression:
Patient is 64 years old male history of hypertension, hyperlipidemia, borderline prediabetes, smoker, came into the hospital with numbness left side of his body. Patient has been experiencing paresthesias for several days and this morning he woke
up being dizzy off balance with left-sided weakness. LKN last night. Glucose prehospital 37 and given glucose with improvement. Denies chest pain or shortness of breath. Denies fevers or chills. He had a CTA of the head and neck with
significant right carotid stenosis. Neurology consulted in the ED.
07/02
POCKETED SPRING MACHINE OPERATOR called on 07/01 for worsening neurologic, repeat CT shows progressive stroke, patient upgraded to IMU.
MRI pending, echo pending.
Updated brother by the phone
07/03
Discussed with brothers at bedside
Assessment/plan:
Acute worsening ischemic stroke:
Etiology likely large vessel in right MCA territory
Seen CTA of the head and neck and CT scan.
Repeat CT head in 24 hours
Not a candidate for TNK per neurology due to out of time window
PT OT speech therapy eval
If unable to swallow we will do aspirin rectally
Transfer to higher level of care today
N.p.o. and IV fluids for now
If no improvement over 24 hours would consider NG tube
Follow-up further neurology recommendation
Prognosis guarded
07/02
MRI pending, Echo pending, brother updated by phone.
07/03
MRI shows:
Right MCA distribution infarct, as described.
Mild mass effect. Minimal shift of midline approximately 1.5-2 mm.
Subtle likely petechial hemorrhagic component suggested involving the right basal ganglia, head of the caudate nucleus, and anterior-superior right frontal cortex.
Slow flow versus occlusion of the right internal carotid artery.
Asking neurology to review MRI finding if okay to continue with aspirin/Plavix/Lovenox
Echo shows:
Normal biventricular size and systolic function without regional wall motion
abnormality. LVEF 55-60%.
No significant valvular disease.
Possible small PFO by color-flow Doppler.
No prior study available for comparison.
Patient passed swallow eval
Right internal carotid stenosis:
Correlation with his acute stroke
Carotid ultrasound showed:
Right carotid: Near occlusion of the ICA with string-like flow.
Left carotid: Mild to moderate calcified plaque within the bulb and proximal ICA. Any stenosis is less than 50% based upon velocity criteria.
Antegrade flow within both the vertebral arteries.
Appreciate vascular surgery input.
Hyponatremia:
Improved
Hyperkalemia:
Resolved
Prediabetes mellitus:
Insulin sliding scale
Hyperlipidemia:
Continue statin
Smoker:
On nicotine patch
CODE STATUS: Full code
DVT prophylaxis: Lovenox
Diet: Minced and moist
Total time spent on today's encounter was 75 minutes which included time spent in counseling the patient/family regarding diagnosis and treatment plan as listed above, goals of care, and symptom management. Case was discussed with nursing staff,
specialists, and care coordinators/case management. All labs and imaging personally reviewed by me. Remainder the time spent in detailed review of previous records, lab data, imaging, and other medical provider documentation.
Anticipated Discharge: > 48 hours
Subjective/Interval History
-
Date of Service: July 03, 2024
Slightly improved compared yesterday.
Discussed later on with brothers at bedside.
MRI done, patient passed swallow eval.
Objective Data
-
Labs:
Laboratory Results
07/03/24
05:16
WBC 12.1 H
Hgb 14.2
Hct 40.1
Plt Count 314
Sodium 138
Potassium 4.4
Chloride 108 H
Carbon Dioxide 16 L
BUN 17
Creatinine 0.7
Glucose 88
Calcium 8.9
Vital Signs:
Vital Signs
Temp Pulse Resp BP Pulse Ox
98.7 F 80 19 155/75 95
07/03/24 07:05 07/03/24 06:00 07/03/24 06:00 07/03/24 06:00 07/03/24 09:40
I&O
07/02/24 07/03/24 07/04/24
06:59 06:59 06:59
Intake Total 1870 / 1870 1920 / 1920
Output Total 650 / 650 500 / 500
Balance 1220 / 1220 1420 / 1420
Physical Exam
-
General: Slurred Speech and Appears Chronically Ill
HEENT: Atraumatic, Moist Mucous Membranes, No Ptosis, PERRLA and Nose Appears Normal
Respiratory: Rales, Rhonchi and Non Labored Respirations
Cardiac: Regular Rhythm and S1/S2
Breast: Deferred by me
GI: Soft, Nontender, Nondistended and Normal Bowel Sounds
Genito-urinary: No Costovertebral Tender
Musculoskeletal: No Edema
Skin: Warm
Neuro: Slurred Speech and Other (Awake not fully oriented); Negative Nonfocal/Grossly Intact (Left-sided hemiparesis)
Psych: Calm
Data Reviewed
-
Diagnostic Radiology: Image personally visualized and interpreted and Report Reviewed by me
CT Scan: Image personally visualized and interpreted and Report Reviewed by me
Ultrasound: Image personally visualized and interpreted and Report Reviewed by me
MRI: Image personally visualized and interpreted and Report Reviewed by me
Medical Tests (Nuc Med, Echo etc): Image personally visualized and interpreted and Report Reviewed by me
Labs: Labs Reviewed by me
Old Records: Reviewed
--- NOTE | 2024-07-03 15:11 | PTOTSP ---
Videofluoroscopic swallow study
Mild-moderate oral, mild pharyngeal dysphagia. See patient care note for details.
Recommend:
1. IDDSI Level 5 Minced and Moist, Mildly Thick Liquids
2. Medications: crushed in puree if medically cleared
3. Strategies: full supervision/assist, upright to 90 degrees, place utensil on right side of mouth, small single sips/bites, slow rate, check for pocketing on left, oral care after meals
4. Oral care 3-5x daily
5. Aspiration Risk Hydration Protocol - single sips of thin liquid water via straw with nurse, after supervision, after oral care, without other foods/meds
6. Dysphagia tx for instruction in compensations, trial of advanced solids/liquids
7. Continued speech/language/cog tx
[2024-07-03] MEDS: PLAVIX 75 MG PO (15:14)
--- NOTE | 2024-07-03 15:25 | PTCARENOTE ---
Foot drop noted to be starting with patient on the left foot after returning from earlier testing. Order placed of multi podus boot to help keep foot at normal position.
[2024-07-03] MEDS: TYLENOL 650 MG PO (15:32)
[2024-07-03] MEDS: LIPITOR 80 MG PO (17:49)
[2024-07-03] MEDS: LOVENOX 40 MG SC (17:49)
[2024-07-03 17:58] LABS: Glucose - Point of Care 170 mg/dl (70-99)
[2024-07-03] MEDS: NOVOLOG FLEXPEN-LOW RESISTANCE 1 UNITS SC (18:10)
--- NOTE | 2024-07-03 18:17 | W.PN.NEURO.1 ---
Today's Communication / Plan
-
.
Neuro Assessment/Plan
Assessment
Head CT imgs reviewed, hypodensity right frontal consistent with several days old stroke
CTA imgs rev'd, right ICA occlusion; distal right M1 occlusion, can't access the M1 for thrombectomy through an occluded carotid
Stroke, large vessel etiology
not a TNK candidate unclear onset
Stroked more in the early am 07/01, still not a TNK candidate for this evolving stroke
Plan
ASA 81 daily
Plavix 75 x90 days
Lipitor 80
right ICA occlusion check carotid ultrasound, if there is any flow on the dopper then vascular surgery consult though I'm not sure there's much point now that he's complete left hemiparesis; if it is indeed 100% occluded then no intervention.
Subjective/Objective
Subjective Data
Date of Service: July 03, 2024
Neurology follow-up note
HPI: This is a 64-year-old man who presented to [facility] on 10/30/2024 with several days of left hemisensory and new imbalance and left-sided weakness.
24-hour events: Fever of 38.1C. Continues to be hypertensive.
Tele: Normal sinus rhythm.
ER VS: 162/90, 83, afebrile
EKG: NSR, QTc Int : 430 ms
PDMP:none
Labs: WBCs�12.1, LDL�100, hemoglobin A1c�5.4
CTA head/neck�right ICA occlusion
Brain MRI�acute right MCA distribution infarct. Mild mass effect. Minimal shift of midline approximately 1.5-2 mm.
Subtle likely petechial hemorrhagic component suggested involving the right basal ganglia, head of the caudate nucleus, and anterior-superior right frontal cortex.
Slow flow versus occlusion of the right internal carotid artery.
TTE-Possible small PFO by color flow Doppler.
PMH: HTN, DLP, DM
PSH: Wrist surgery.
SH: single, lives with a roommate, light smoker
All:NKDA
ROS: Negative for headache, change in vision, positive for hemineglect
General: Well developed. In no acute distress.
Cardio: Regular rate and rhythm without murmur. Extremities are without cyanosis or edema.
Neuro:
Mental Status: Alert, oriented to name. Increased processing time. Impaired attention and comprehension. Mild left hemineglect. Follows simple requests intermittently. Nonfluent.
Cranial Nerves: Pupils are equally round and reactive to light. Horizontal EOMs full. No blink to threat on the left left facial weakness. Preserved hearing. Mild dysarthria
Motor: Spastic left hemiplegia.
Sensory: Limited exam due to poor attention
Coordination: No tremors myoclonic movement
Gait: deferred
Assessment and Plan:
I. Acute right MCA/PRIETO territory stroke. Likely etiology�embolic right ICA occlusion.
II. Encephalopathy (vascular, infectious)
III. Questionable PFO
- Continue Telemetry monitoring
- Aspiration and seizure precautions
- TTE
- Continue aspirin 81 mg once a day. D/C Plavix.
- Plan for CUCA if no source of fever found
-Lower extremity Doppler ultrasound
-DVT prophylaxis.
I personally reviewed all radiology and labs along with past medical records pertinent to current medical problems. Total time spent in patient care is 35 minutes.
Thank you for allowing us to participate in the care of this patient. We will continue to follow. Please do not hesitate to contact us with any questions or concerns.
Objective Data
Vital Signs
Temp Pulse Resp BP Pulse Ox
38.1 C H 80 19 155/75 95
07/03/24 14:55 07/03/24 06:00 07/03/24 06:00 07/03/24 06:00 07/03/24 09:40
Lab Results
07/03/24 05:16
07/03/24 05:16
PT 13.4 Sec (11.4-14.6) 06/30/24 11:12
INR 0.99 06/30/24 11:12
APTT 24.3 Sec (23.4-35.0) 06/30/24 11:12
Sodium 138 mmol/L (135-145) 07/03/24 05:16
Potassium 4.4 mmol/L (3.5-5.1) 07/03/24 05:16
BUN 17 mg/dl (9-20) 07/03/24 05:16
Glucose 88 mg/dl (70-99) 07/03/24 05:16
Calcium 8.9 mg/dl (8.4-10.2) 07/03/24 05:16
LDL Cholesterol, Calc 100 mg/dl 07/01/24 05:36
Patient Allergies
NKA - No Known Allergies Allergy (Uncoded 07/14/07 10:35)
[2024-07-03 20:28] LABS: Urine Albumin 1+ (Neg - Trace); Urine Bilirubin Negative (Negative); Urine Character Clear (Clear); Urine Color Yellow; Urine Glucose Negative (Negative); Urine Ketone 1+ (Negative); Urine Leukocyte Negative (Negative); Urine Nitrite Negative (Negative); Urine Occult Blood 2+ (Negative); Urine Specific Gravity 1.025 (<1.030); Urine Urobilinogen 1+ (Neg - 1+)
[2024-07-03 20:41] LABS: Urine Red Blood Cell 0-2 /HPF (0-2); Urine Squamous Cell 0-2 /LPF (Few)
[2024-07-03 20:42] LABS: Urine Bacteria Moderate (Negative); Urine Uric Acid Crystals Present
[2024-07-03 21:31] LABS: Glucose - Point of Care 136 mg/dl (70-99)
[2024-07-04] VITALS (14 sets, daily range): BP systolic 128–155; BP diastolic 51–87; PULSE 87; O2SAT 95
[2024-07-04] MEDS: NSS 1000 IV (00:28)
--- NOTE | 2024-07-04 03:36 | PTCARENOTE ---
assumed care of patient. pt is AAOx1-2, flat and confused at times. bed alarm on. VSS. 96% RA, NIH completed per worklist. NSR on the monitor. pickett intact, to be removed in the AM. IV fluids infusing. UA sent down per order. portable CXR done.
watching fever trend. care ongoing.
[2024-07-04 04:34] LABS: Hemoglobin 12.7 g/dL (13.0-18.0); Mean Corp Hgb Conc. 35.3 g/dL (33.0-37.0); Mean Corpuscular Hgb 30.9 pg (27.0-31.0); Mean Corpuscular Volume 87.6 fL (80.0-94.0); Mean Platelet Volume 9.2 fL (7.4-10.4); Platelet Count 253 10^3/uL (130-400); Red Blood Cell Count 4.11 10^6/uL (4.70-6.10); Red Cell Dist. Width 12.7 % (11.5-14.5); White Blood Cell Count 8.2 10^3/uL (4.8-10.8)
[2024-07-04 04:38] LABS: Blood Urea Nitrogen 17 mg/dl (9-20); Calcium 8.6 mg/dl (8.4-10.2); Carbon Dioxide 20 mmol/L (22-30); Chloride 107 mmol/L (98-107); Estimated Creatinine Clearance 100 ml/min; Glucose 124 mg/dl (70-99); Potassium 3.7 mmol/L (3.5-5.1); Sodium 134 mmol/L (135-145); eGFR > 60.00
--- NOTE | 2024-07-04 05:40 | PTCARENOTE ---
this AM pt noted to have moist non-productive cough, some wheezes with exertion 92% RA. pt denies SOB. lungs diminished with slight crackles at the bases. notified covering PLATFORM INSPECTOR- pt now eating and drinking without issues. IV fluids put on hold at
this time. care ongoing.
--- NOTE | 2024-07-04 06:09 | PTCARENOTE ---
pickett removed this AM per order. urinal provided at bedside, pt verbalized understanding.
[2024-07-04 08:09] LABS: Glucose - Point of Care 122 mg/dl (70-99)
[2024-07-04] MEDS: NICODERM TRANSDERMAL 21 MG TRANSDERM (08:15)
[2024-07-04] MEDS: ASPIR LOW (ENTERIC COATED) 81 MG PO (08:17)
[2024-07-04] MEDS: NOVOLOG FLEXPEN-LOW RESISTANCE SC (08:18)
--- NOTE | 2024-07-04 08:28 | PTCARENOTE ---
Increase in NIH from 15 to 18, see intervention. Dr. Gregg notified.
--- NOTE | 2024-07-04 09:32 | CON.CAR ---
Addendum entered and electronically signed by Tae Navarro MD 07/04/24 12:25:
I saw and examined the patient.
The DISK AND TAPE MACHINE TENDER's note was reviewed and I agree with the note.
Comment:
64-year-old man with hypertension, hyperlipidemia, prediabetes, and active tobacco use who presents with left-sided weakness found to have right MCA distribution infarct and right ICA occlusion. Cardiology is consulted for consideration of CUCA. He
has ongoing left hemiplegia. He does not answer questions for me. Physical exam notable for left-sided hemiplegia, regular rate and rhythm, no murmurs, no lower extremity edema, and clear lungs. Labs are notable for undetectable troponin, LDL
100. TTE 07/02/24: LVEF 55-60%, no significant valvular disease, possible small PFO.
I discussed his case with neurology and primary team. Given his extensive risk factors for cerebrovascular disease and right ICA occlusion, I think that the likelihood of a cardioembolic source for stroke is low. He has had no atrial fibrillation
on telemetry and TTE was fairly unremarkable. Possible small PFO was noted but given his R ICA disease, HTN, HLD, and smoking, PFO would still not likely be a source of stroke. I would not recommend CUCA at this time. The question of endocarditis
was also raised, but it seems that he has had only 1 fever with a temp of 100.6 which resolved with Tylenol. No blood cultures. If he continues to fever, would recommend workup with blood cultures. Agree with neurology on DAPT and statin.
Please call us back if clinical status changes and CUCA is warranted.
Original Note:
Consultation
Consultation Request
Date/Time Consultation Requested: 07/04/24 875
Date/Time Consultation Performed: 07/04/24 0932
Requesting Provider: Dr. Gregg
Performing Provider: Heidi MENDOZA for Dr. Navarro
Reason for Consultation: CUCA evaluation
Medical History
-
Chief Complaint: left-sided weakness
History of Present Illness:
64 y/o male with HTN, HLD, preDM, smoking. He reports he was on medicine as OP from the [place], but unable to tell me what at this time. He denies any history of cardiac issues. He presented with left-sided weakness and is seen to have a right MCA
distribution infarct. He also had MARISA occlusion. He has left hemiplegia. We are consulted by neurology to evaluate for CUCA (per neuro note- if no source of fever found, as patient had a temp of 100.6). Patient is tearful at the time of my
assessment and offered emotional support as best I was able during our visit.
Past Medical History
Past Medical History: HTN and Hypercholesterolemia
Social History
Tobacco: Smoker
Family History
Family History: Reviewed & Not Pertinent
Allergies / Home Medications
Allergy/AdvReac Type Severity Reaction Status Date / Time
NKA - No Known Allergies Allergy Uncoded 07/14/07 10:35
�Medication �Instructions �Recorded �Confirmed �Type
No Meds [No Current Medications] 06/30/24 06/30/24 History
Patient reports he does take medicine from the [place] when I asked him about HTN and HLD meds, but did not specify more than that
Review of Systems
-
History Source: Patient and Other (and chart)
All other systems: Negative unless noted
Musculoskeletal: Other (left-sided weakness)
Physical Exam
Vital Signs
Temp Pulse Resp BP Pulse Ox
98.1 F 66 19 134/58 92
07/04/24 07:45 07/04/24 06:00 07/04/24 06:00 07/04/24 06:00 07/04/24 08:00
Lab Results
07/04/24 04:02
07/04/24 04:02
Troponin I < 0.012 ng/ml 06/30/24 11:12
Physical Exam
General: Well Developed, Well Nourished and No Apparent Distress
HEENT: Normocephalic and Anicteric
Respiratory: Clear and Non Labored Respirations
Cardiac: Regular Rhythm
Musculoskeletal: No Edema
Skin: Warm and Dry
Neuro: Awake, Alert and Other (able to answer some questions, tearful at times)
Impression / Plan
-
Stroke, right MCA distribution:
-this diagnosis is threat to bodily function
-neurology is on the case and he is on ASA and statin
-has R ICA occlusion, per vascular- no surgery plans for this
Evaluation for CUCA:
-per neuro, if no other source of fever (100.6) found
-will discuss with the team
Smoking:
-on nicotine patch
-needs education on cessation prior to d/c
Data Reviewed
-
EKG: Tracing Personally Visualized and interpreted (NSR 89 BPM)
Radiology: Report Reviewed by me (CXR: No acute cardiopulmonary process. No interval change.)
CT Scan: Report Reviewed by me
MRI: Report Reviewed by me (MRI 07/03/24: Right MCA distribution infarct. Mild mass effect. Minimal shift of midline approximately 1.5-2 mm. Subtle likely petechial hemorrhagic component suggested involving the right basal ganglia, head of the
caudate nucleus, and anterior-superior right frontal cortex. )
Medical Tests (Nuc Med, Echo etc): Report Reviewed by me (Echo 07/02/24: Normal biventricular size and systolic function without regional wall motion abnormality. LVEF 55-60%. No significant valvular disease. Possible small PFO by color-flow
Doppler.)
Labs: Labs Reviewed by me
--- NOTE | 2024-07-04 11:18 | W.PN.NEURO.1 ---
Today's Communication / Plan
-
.
Subjective/Objective
Subjective Data
Date of Service: July 04, 2024
Neurology follow-up note
HPI: No acute events overnight.
The patient continues to be anosognosic.
LE US, CUCA-pending.
LDL�100, hemoglobin A1c�5.4
CTA head/neck�right ICA occlusion
Brain MRI�acute right MCA distribution infarct. Mild mass effect. Minimal shift of midline approximately 1.5-2 mm. Subtle likely petechial hemorrhagic component suggested involving the right basal ganglia, head of the caudate nucleus, and
anterior-superior right frontal cortex. Slow flow versus occlusion of the right internal carotid artery.
TTE-possible small PFO by color flow Doppler.
PMH: HTN, DLP, DM
PSH: Wrist surgery.
SH: single, lives with a roommate, light smoker
All:NKDA
ROS: Negative for headache, change in vision, positive for L hemineglect
General: Well developed. In no acute distress.
Cardio: Regular rate and rhythm without murmur. Extremities are without cyanosis or edema.
Neuro:
Mental Status: Alert, oriented to name only. Pseudobulbar effect. Increased processing time. Impaired attention and comprehension. Mild left hemineglect. Follows simple requests intermittently. Nonfluent.
Cranial Nerves: Pupils are equally round and reactive to light. Horizontal EOMs full. No blink to threat on the left left facial weakness. Preserved hearing. Mild dysarthria
Motor: Spastic left hemiplegia.
Sensory: Limited exam due to poor attention
Coordination: No tremors myoclonic movement
Gait: deferred
Assessment and Plan:
I. Acute right MCA/PRIETO territory stroke. Likely etiology�embolic right ICA occlusion.
II. Encephalopathy (vascular, infectious)
III. Questionable PFO
IV. Fever
- Continue Telemetry monitoring
- Aspiration and seizure precautions
- Continue aspirin 81 mg once a day
- CUCA
-Lower extremity Doppler ultrasound
-DVT prophylaxis.
I personally reviewed all radiology and labs along with past medical records pertinent to current medical problems. Total time spent in patient care is 40 minutes.
Thank you for allowing us to participate in the care of this patient. We will continue to follow. Please do not hesitate to contact us with any questions or concerns.
Objective Data
Vital Signs
Temp Pulse Resp BP Pulse Ox
36.7 C 66 19 134/58 92
07/04/24 07:45 07/04/24 06:00 07/04/24 06:00 07/04/24 06:00 07/04/24 08:00
Lab Results
07/04/24 04:02
07/04/24 04:02
PT 13.4 Sec (11.4-14.6) 06/30/24 11:12
INR 0.99 06/30/24 11:12
APTT 24.3 Sec (23.4-35.0) 06/30/24 11:12
Sodium 134 mmol/L (135-145) L 07/04/24 04:02
Potassium 3.7 mmol/L (3.5-5.1) 07/04/24 04:02
BUN 17 mg/dl (9-20) 07/04/24 04:02
Glucose 124 mg/dl (70-99) H 07/04/24 04:02
Calcium 8.6 mg/dl (8.4-10.2) 07/04/24 04:02
LDL Cholesterol, Calc 100 mg/dl 07/01/24 05:36
Patient Allergies
NKA - No Known Allergies Allergy (Uncoded 07/14/07 10:35)
Vital Signs and Labs
-
Vital Signs and Labs:
Vital Signs
Temp Pulse Resp BP Pulse Ox
36.7 C 66 19 134/58 92
07/04/24 07:45 07/04/24 06:00 07/04/24 06:00 07/04/24 06:00 07/04/24 08:00
Lab Results
07/04/24 04:02
07/04/24 04:02
PT 13.4 Sec (11.4-14.6) 06/30/24 11:12
INR 0.99 06/30/24 11:12
APTT 24.3 Sec (23.4-35.0) 06/30/24 11:12
Sodium 134 mmol/L (135-145) L 07/04/24 04:02
Potassium 3.7 mmol/L (3.5-5.1) 07/04/24 04:02
BUN 17 mg/dl (9-20) 07/04/24 04:02
Glucose 124 mg/dl (70-99) H 07/04/24 04:02
Calcium 8.6 mg/dl (8.4-10.2) 07/04/24 04:02
LDL Cholesterol, Calc 100 mg/dl 07/01/24 05:36
Medications
-
Medications:
Generic Name Dose Route Start Last Admin
Trade Name Freq PRN Reason Stop Dose Admin
Acetaminophen 650 mg 06/30/24 14:11
Acetaminophen 650 Mg Rectal Suppository RECTAL 07/28/24 14:10
Q4HPRN PRN
BARRETT, mild pain, or temp >100.4F
Acetaminophen 650 mg 06/30/24 14:11 07/03/24 15:32
Acetaminophen 325 Mg Tablet PO 07/28/24 14:10 650 mg
Q4HPRN PRN Administration
BARRETT, mild pain, or temp >100.4F
Aspirin 81 mg 07/01/24 08:00 07/04/24 08:17
Aspirin 81 Mg (Enteric Coated) Tablet PO 07/29/24 07:59 81 mg
DAILY DONATO Administration
Atorvastatin Calcium 80 mg 06/30/24 18:00 07/03/24 17:49
Atorvastatin (Lipitor) 80 Mg Tablet PO 07/28/24 17:59 80 mg
QPM DONATO Administration
Dextrose 12.5 grams 06/30/24 14:11
Dextrose 50% (0.5 Grams/Ml) 50 Ml Syringe IV 07/28/24 14:10
[id number] PRN
hypoglycemia
Protocol
Enoxaparin Sodium 40 mg 07/01/24 18:00 07/03/24 17:49
Enoxaparin Sodium 40 Mg/0.4 Ml Syringe SC 07/29/24 17:59 40 mg
QPM DONATO Administration
Glucagon 1 mg 06/30/24 14:11
Glucagon 1 Mg Vial IM 07/28/24 14:10
PRN PRN
hypoglycemia
Protocol
Sodium Chloride 1,000 mls @ 85 mls/hr 07/02/24 21:45 07/04/24 00:28
Nss IV 1,000 mls
.[id number] DONATO Administration
Insulin Aspart 0 units 07/03/24 16:30 07/04/24 08:18
Insulin Aspart Low Resistance 300 Units/3 Ml Pen.Injctr SC 07/31/24 16:29 Not Given
AC DONATO
Protocol
Nicotine 21 mg 06/30/24 14:11 07/04/24 08:15
Nicotine 21 Mg Patch TRANSDERM 07/28/24 14:10 21 mg
DAILY DONATO Administration
Patch Removal 0 patch 06/30/24 22:00 07/03/24 18:54
Remove Nicotine Patch REMOVE 07/28/24 21:59 1 patch
HS DONATO Administration
Sodium Chloride 0 flush 06/30/24 14:00
Sodium Chloride 0.9% (Flush) Syringe IV 07/28/24 13:59
PER PROTOCOL DONATO
Home Medications
-
Home Medications
No Meds [No Current Medications] 06/30/24
--- NOTE | 2024-07-04 12:09 | W.PN.HOSP.TC ---
Addendum entered and electronically signed by Ge Garces MD 07/04/24 14:44:
Cerebral edema is a valid diagnosis
Original Note:
Today's Communication/Plan
-
Blood culture pending
Assessment / Plan
Assessment / Plan
Impression:
Patient is 64 years old male history of hypertension, hyperlipidemia, borderline prediabetes, smoker, came into the hospital with numbness left side of his body. Patient has been experiencing paresthesias for several days and this morning he woke
up being dizzy off balance with left-sided weakness. LKN last night. Glucose prehospital 37 and given glucose with improvement. Denies chest pain or shortness of breath. Denies fevers or chills. He had a CTA of the head and neck with
significant right carotid stenosis. Neurology consulted in the ED.
07/02
SHEARING MACHINE FEEDER called on 07/01 for worsening neurologic, repeat CT shows progressive stroke, patient upgraded to IMU.
MRI pending, echo pending.
Updated brother by the phone
07/03
Discussed with brothers at bedside
07/04
Patient developed fever, chest x-ray negative, pending blood cultures
Assessment/plan:
Acute worsening ischemic stroke:
Etiology likely large vessel in right MCA territory
Seen CTA of the head and neck and CT scan.
Repeat CT head in 24 hours
Not a candidate for TNK per neurology due to out of time window
PT OT speech therapy eval
If unable to swallow we will do aspirin rectally
Transfer to higher level of care today
N.p.o. and IV fluids for now
If no improvement over 24 hours would consider NG tube
Follow-up further neurology recommendation
Prognosis guarded
07/02
MRI pending, Echo pending, brother updated by phone.
07/03
MRI shows:
Right MCA distribution infarct, as described.
Mild mass effect. Minimal shift of midline approximately 1.5-2 mm.
Subtle likely petechial hemorrhagic component suggested involving the right basal ganglia, head of the caudate nucleus, and anterior-superior right frontal cortex.
Slow flow versus occlusion of the right internal carotid artery.
Asking neurology to review MRI finding if okay to continue with aspirin/Plavix/Lovenox
Echo shows:
Normal biventricular size and systolic function without regional wall motion
abnormality. LVEF 55-60%.
No significant valvular disease.
Possible small PFO by color-flow Doppler.
No prior study available for comparison.
Patient passed swallow eval
Right internal carotid stenosis:
Correlation with his acute stroke
Carotid ultrasound showed:
Right carotid: Near occlusion of the ICA with string-like flow.
Left carotid: Mild to moderate calcified plaque within the bulb and proximal ICA. Any stenosis is less than 50% based upon velocity criteria.
Antegrade flow within both the vertebral arteries.
Appreciate vascular surgery input.
Hyponatremia:
Improved
Hyperkalemia:
Resolved
Prediabetes mellitus:
Insulin sliding scale
Hyperlipidemia:
Continue statin
Smoker:
On nicotine patch
CODE STATUS: Full code
DVT prophylaxis: Lovenox
Diet: Minced and moist
Total time spent on today's encounter was 75 minutes which included time spent in counseling the patient/family regarding diagnosis and treatment plan as listed above, goals of care, and symptom management. Case was discussed with nursing staff,
specialists, and care coordinators/case management. All labs and imaging personally reviewed by me. Remainder the time spent in detailed review of previous records, lab data, imaging, and other medical provider documentation.
Anticipated Discharge: > 48 hours
Subjective/Interval History
-
Date of Service: July 04, 2024
Overnight patient developed fever but chest x-ray came back shows no acute finding.
Patient is more communicating today.
Blood cultures pending
Objective Data
-
Labs:
Laboratory Results
07/04/24
04:02
WBC 8.2
Hgb 12.7 L
Hct 36.0 L
Plt Count 253
Sodium 134 L
Potassium 3.7
Chloride 107
Carbon Dioxide 20 L
BUN 17
Creatinine 0.7
Glucose 124 H
Calcium 8.6
Vital Signs:
Vital Signs
Temp Pulse Resp BP Pulse Ox
98.1 F 66 19 134/58 92
07/04/24 07:45 07/04/24 06:00 07/04/24 06:00 07/04/24 06:00 07/04/24 08:00
I&O
07/03/24 07/04/24 07/05/24
06:59 06:59 06:59
Intake Total 0 / 192
Output Total 500 / 500 500 / 500
Balance 1420 / 1420 -500 / -500
Physical Exam
-
General: Slurred Speech and Appears Chronically Ill
HEENT: Atraumatic, Moist Mucous Membranes, No Ptosis, PERRLA and Nose Appears Normal
Respiratory: Rales, Rhonchi and Non Labored Respirations
Cardiac: Regular Rhythm and S1/S2
Breast: Deferred by me
GI: Soft, Nontender, Nondistended and Normal Bowel Sounds
Genito-urinary: No Costovertebral Tender
Musculoskeletal: No Edema
Skin: Warm
Neuro: Slurred Speech and Other (Left-sided hemiparesis)
Psych: Calm
[2024-07-04 12:27] LABS: Glucose - Point of Care 158 mg/dl (70-99)
[2024-07-04] MEDS: NOVOLOG FLEXPEN-LOW RESISTANCE 1 UNITS SC ×2 (13:49→18:09)
--- NOTE | 2024-07-04 14:26 | PN.CDI ---
CDI
- -
CDI:
Physician Documentation Request
Admit Date: 06/30/24 13:17
Dear Doctor Mili,
Please review the following and provide your response in the progress notes.
Clinical Indicators:
MRI, 07/03
#FINDINGS:
#...Moderate region of acute infarct involving the right MCA distribution.
#...There is associated cerebral cortical and white matter edema
#...with effacement of the cerebral sulci.
#There is slight extrinsic compression of the right lateral ventricle.
#...Very subtle leftward shift of the septum pellucidum approximately 1.5-2 mm.
Based on the above and your clinical assessment, please indicate in your progress notes if you are in agreement that the above diagnosis is valid for this patient:
Cerebral edema is a valid diagnosis (Please include it in your progress notes)
Cerebral edema is not a valid diagnosis for this patient
Cerebral edema is not yet confirmed but remains a suspected condition
Other (please specify)
Use of terms such as suspected, likely, concern for, or probable are acceptable for a diagnosis that is being evaluated, monitored or treated as if it exists and can be coded in the inpatient setting, when documented at the time of discharge.
Thank you,
Althea Soriano RN BSN CCDS
CDI Specialist
Please contact via tiger text
Please use your independent medical judgment in providing your response.
--- NOTE | 2024-07-04 15:27 | CM ---
Addendum entered by Jannette Thomas RN 07/05/24 15:16:
Offered to meet with son today however he visited with DIL and left without asking for CM.
Original Note:
Patient with Dx CVA. Room air. Receiving IVF. Dysphagia diet. PT/OT recommend acute rehab.
Spoke with Josias, brother;
patient resides in his own split level home with 5 stairs between levels with 2 JEFF.
The patient's bedroom is in the basement with 5-7 steps to get downstairs.
He had been independent in ADLs and ambulance without an assistive device.
He had rented out a room to his friend Rell who is staying there.
The patient has no DME.
No prior VN or SNF.
PCP - TRACY Marvin
Pharmacy - uses mailorder pharmacy
Josias confirmed patient's son Bharathi, who lives in [place], does not have frequent contact with the patient. Bharathi is and is expecting their first child.
Josias shares that the friend Rell is active and works.
Josias is close to the patient and lives in [place] however he does not drive.
The patient has
Phone call to Bharathi, patient's son (ph [phone]; unable to leave message as voicemail not setup.
Sent text to son Bharathi with no response.
Spoke with Sim Agudelo Liaison; she will ask Dr Lainez to eval the patient today.
Plan follow up after seen by Asw/Asuw Tactical Air Controller.
Plan probable acute rehab.
--- NOTE | 2024-07-04 16:12 | CON.MR ---
Consultation
Consultation Request
Date/Time Consultation Performed: 07/04/2024 1600
Performing Provider: Dr. Lainez
Reason for Consultation: CVA
Medical History
-
Chief Complaint: L weaknes
History of Present Illness:
I had the opportunity to see Andres Strong in rehabilitation consultation today. This is a 64 year-old male, admitted on 06/30/24, with left sided weakness. Apparently started a week prior, with some numbness in the left hand, and some balance deficits.
But then some progressive worsening with his balance and weakness, came to the ER for further evaluation. CT scan, initially with some MCA territory infarct. Notable occlusion of the right ICA. No TNK was given. Was palnned to start on aspirin and
Plavix. Notably on 07/01, rapid response was called due with worsening neurologic changes, worsening weakness, on the left side. MRI of the brain, did show right MCA in far, minimal midline shift, 1 to 2 mm. Seen by vascular surgery, no surgical
intervention recommended for the occlusion, although there was some slight patency seen on carotid, and angiogram studies. But felt was not a surgical candidate.
Hospital course also notable for development of fever, 07/04, UA did have some positive. Evaluated by speech therapy, placed on IDDSI 5 diet minced and moist diet with mildly thick liquids.
Patient was seen at bedside this afternoon, lying in bed, and seems so somewhat confused. Says he has been laying there for quite a while. Poor awareness of his medical condition, weakness, stroke. He does deny any pain, still feels numbness in that
left side. Did tell me that the weakness is worse than it was when he initially came in. Also denies any headache. No other pain elsewhere. Denies chest pain or shortness of breath.
Unsure of his living situation, says initially, he had a roommate, but then told me that he lived in a truck.
Past Medical History:
Hypertension
Hyperlipidemia
Past Surgical History: Wrist surgery
Social History
Tobacco: Smoker (1-2 times daily)
Alcohol: Occasional
Drug: None
Personal: Single
Living: With Roomate
Family History
Family History: Reviewed & Not Pertinent
Social History
Functional Level Premorbidity:
Independent for all activities.
Current Funct Level: Ambulation, Transfer, UE/LE Dressing:
Max A to dependent for bed mobility.
Allergies / Home Medications
Allergy/AdvReac Type Severity Reaction Status Date / Time
NKA - No Known Allergies Allergy Uncoded 07/14/07 10:35
�Medication �Instructions �Recorded �Confirmed �Last Taken �Type
No Meds [No Current Medications] 06/30/24 06/30/24 Unknown History
Review Of Systems
-
Unable to obtain full review of systems at this time due to: Other (Possible confusion vs. aphasia)
Physical Exam
Active Medications
Generic Name Dose Route Start Last Admin
Trade Name Freq PRN Reason Stop Dose Admin
Acetaminophen 650 mg 06/30/24 14:11
Acetaminophen 650 Mg Rectal Suppository RECTAL 07/28/24 14:10
Q4HPRN PRN
BARRETT, mild pain, or temp >100.4F
Acetaminophen 650 mg 06/30/24 14:11 07/03/24 15:32
Acetaminophen 325 Mg Tablet PO 07/28/24 14:10 650 mg
Q4HPRN PRN Administration
BARRETT, mild pain, or temp >100.4F
Aspirin 81 mg 07/01/24 08:00 07/04/24 08:17
Aspirin 81 Mg (Enteric Coated) Tablet PO 07/29/24 07:59 81 mg
DAILY DONATO Administration
Atorvastatin Calcium 80 mg 06/30/24 18:00 07/03/24 17:49
Atorvastatin (Lipitor) 80 Mg Tablet PO 07/28/24 17:59 80 mg
QPM DONATO Administration
Dextrose 12.5 grams 06/30/24 14:11
Dextrose 50% (0.5 Grams/Ml) 50 Ml Syringe IV 07/28/24 14:10
[id number] PRN
hypoglycemia
Protocol
Enoxaparin Sodium 40 mg 07/01/24 18:00 07/03/24 17:49
Enoxaparin Sodium 40 Mg/0.4 Ml Syringe SC 07/29/24 17:59 40 mg
QPM DONATO Administration
Glucagon 1 mg 06/30/24 14:11
Glucagon 1 Mg Vial IM 07/28/24 14:10
PRN PRN
hypoglycemia
Protocol
Sodium Chloride 1,000 mls @ 85 mls/hr 07/02/24 21:45 07/04/24 00:28
Nss IV 1,000 mls
.[id number] DONATO Administration
Insulin Aspart 0 units 07/03/24 16:30 07/04/24 13:49
Insulin Aspart Low Resistance 300 Units/3 Ml Pen.Injctr SC 07/31/24 16:29 1 units
AC DONATO Administration
Protocol
Nicotine 21 mg 06/30/24 14:11 07/04/24 08:15
Nicotine 21 Mg Patch TRANSDERM 07/28/24 14:10 21 mg
DAILY DONATO Administration
Patch Removal 0 patch 06/30/24 22:00 07/03/24 18:54
Remove Nicotine Patch REMOVE 07/28/24 21:59 1 patch
HS DONATO Administration
Sodium Chloride 0 flush 06/30/24 14:00
Sodium Chloride 0.9% (Flush) Syringe IV 07/28/24 13:59
PER PROTOCOL DONATO
Vital Signs
Temp Pulse Resp BP Pulse Ox
98.5 F 91 19 147/83 94
07/04/24 15:55 07/04/24 14:00 07/04/24 14:00 07/04/24 14:00 07/04/24 14:00
Height 5 ft 8 in
Actual Weight 77.2 kg
Body Mass Index (BMI) 25.9
Physical Exam
Physical Exam:
General Appearance/Observation: Well-developed, well-nourished individual lying in bed.
Mood/Affect: Flat. Is awake and seems alert
Eyes: Conjunctiva/Lids: normal Pupils: pupils equal round and reactive to light and Accommodation. Difficulty with tracking, no nystagmus but seems like some left inattention?
Ears/Nose/Throat: oral mucosa moist, throat clear. Lips/Teeth/Gums: normal
Neck: No muscle spasm or tenderness
Cardiovascular: Heart: regular, no murmur
Pulses: dorsalis pedis 2+ bilaterally
Respiratory: Respiratory Effort/Chest Expansion: normal Auscultation: Clear to auscultation bilaterally
Gastrointestinal: abdomen not tender, no distension, normal abdominal bowel sounds
Genitourinary: Alvarado
Rectal Exam: Deferred
Extremities: Edema: None Cyanosis: None Trophic changes: None
L LE multi-podus boot in place.
Neurology Exam:
Orientation: Is awake and alert, but unable to state name or place.
Higher cortical function
Speech: Dysarthria - but also wet vocalization
Comprehension: Seemed intact, but some difficulty following commands - was inconsistent
Cranial Nerves:
CNII: Pupillary light reflex: Intact Visual Field: Has some left inattention
CN III, IV, : Extraocular muscles: Intact - no nystagmus
CN V: Facial Sensation at Forehead: unable to answer when tested
CN VII: Facial movement: Left weakness compared to right.
CN VIII: Hearing: Normal
CN IX/X: Speech & swallow: impaired - dysarthria, wet vocal quality
CN XI: Shoulder shrug: none on left
CN XII: Tongue protrusion: did not follow command
Sensory:
Light touch: difficult assessment with answering questions
Reflexes:
Biceps: 3+ left
Triceps: 3+ left
Babinski: Positive left
Clonus: None
Giulia: Mild positive left
Cerebellar: Dysmetria/Ataxia: unable to test with hemiplegia
Musculoskeletal:
Motor: (Manual muscle scale 0-5)
Muscle SA EF WE EE FF FA HF KE DF EHL PF
Right 5 5 5 5 5 5 5 5 5 5 5
Left 0 0 0 0 0 0 0 0 0 0 0
Tone: Some increased tone in LUE, but full ROM
Range of Motion: Passively within normal limits in all extremities
Lab Results
07/04/24 04:02
07/04/24 04:02
WBC 8.2 10^3/uL (4.8-10.8) 07/04/24 04:02
Hgb 12.7 g/dL (13.0-18.0) L 07/04/24 04:02
Hct 36.0 % (39.0-52.0) L 07/04/24 04:02
MCV 87.6 fL (80.0-94.0) 07/04/24 04:02
Plt Count 253 10^3/uL (130-400) 07/04/24 04:02
PT 13.4 Sec (11.4-14.6) 06/30/24 11:12
INR 0.99 06/30/24 11:12
Sodium 134 mmol/L (135-145) L 07/04/24 04:02
Potassium 3.7 mmol/L (3.5-5.1) 07/04/24 04:02
Chloride 107 mmol/L (98-107) 07/04/24 04:02
Carbon Dioxide 20 mmol/L (22-30) L 07/04/24 04:02
BUN 17 mg/dl (9-20) 07/04/24 04:02
Creatinine 0.7 mg/dL (0.7-1.3) 07/04/24 04:02
eGFR > 60.00 07/04/24 04:02
Glucose 124 mg/dl (70-99) H 07/04/24 04:02
Hemoglobin A1c 5.4 % (4.0-5.6) 07/01/24 05:36
Calcium 8.6 mg/dl (8.4-10.2) 07/04/24 04:02
Total Bilirubin 0.7 mg/dl (0.2-1.3) 06/30/24 11:12
AST 22 U/L (17-59) 06/30/24 11:12
ALT 18 U/L (0-50) 06/30/24 11:12
Alkaline Phosphatase 60 U/L (38-126) 06/30/24 11:12
Total Protein 7.5 g/dl (6.3-8.2) 06/30/24 11:12
Albumin 4.6 g/dl (3.5-5.0) 06/30/24 11:12
Diagnostic Results
As per HPI.
Comorbidities / Impairment Group
Comorbidities:
Impairment Group:
CVA Left hemiplegia
Assessment / Plan
Plan
Assessment:
64 year old male with R MCA territory infarct with dense left hemiplegia, dysarthria, aphasia, dysphagia.
PM&R PT/OT to increase independence with ADLs, improve balance, coordination, endurance, strength, mobility, community reintegration, decreased burden of care on others and family education.
CVA: Secondary prophylaxis with aspirin and statin. Initial plan for plavix, but currently not on DAPT with some petechiae seen on imaging and the midline shift? Monitor blood pressure control but has been off of antihypertensives. Continue to
monitor neurologic status.
Left nondominant hemiplegia: High risk for falls and sliding out of chair/bed. Safety reinforced.
- Avoid using left arm to help lift or pull patient as this could cause trauma to the shoulder.
Left Neglect/inattention: makes patient at increased risk for falls. Will need therapy to work on scanning of environment for safe navigation.
Dysphagia: Continue speech evaluation, oral care protocol, chlorhexidine rinse after meals and HS, aspiration precautions. Is on IDDSI 5 minced and moist diet with thickened liquids per speech evaluation. Advance diet as tolerated.
Dysarthria: speech evaluation
Aphasia: speech evaluation
HTN: not on any current medications, monitor closely
HLD: Statin
Fever: Current work up in progress, possible UTI?
Psych: Will likely need Psychology consult. Monitor mood, adjust medications as needed.
Skin: monitor for pressure sores/rashes/lesions.
Pain: acetaminophen as needed.
Bowel: Colace and Senna, PRN bisacodyl.
Tobacco Abuse: Will need smoking cessation counseling
DVT Prophylaxis: On Lovenox SQ
Pulmonary: Incentive spirometry
Safety: Continue to reinforce assistance with all transfers.
Code Status: Full code
Dispo (date/plan/equipment needs): Plan for acute rehabilitation for stroke rehab program once medically stable for discharge.
Functional and Medical Goals: Modified Independent with ADL�s, ambulation, transfers
Summary
-
Things that must be addressed in Hospital prior to discharge:
1. Please continue bedside PT/OT.
2. Please continue speech/swallow therapy and advance diet if tolerated.
3. Blood pressure must be less than 180 systolic and 100 diastolic for 24 hours before being stable for transfer to SNF/acute rehab.
4. Please give any further clarification for blood pressure parameters.
5. Please clarify patient living situation and potential for return after discharge from rehabilitation
Discharge Destination: Acute rehab when medically stable
Summary of recommendations:
- Discharge Destination: Acute rehabilitation
Will continue to follow patient.
Thank you for allowing me to care for your patient. Please contact me with any questions or concerns.
Data Reviewed
-
Radiology: Image Personally Visualized and interpreted and Report Reviewed by me
Labs: Labs Reviewed by me
Comments
-
This note was dictated using a voice recognition system. Please excuse any typographical errors from infection preventionist. If you believe there are any discrepancies, please notify our office.
--- NOTE | 2024-07-04 17:24 | PTCARENOTE ---
Pt's assessment as documented. NIH and neuro checks as documented. NSR on tele monitor. Pt has not yet voided after pickett removal; see bladder scan intervention. To and from US via stretcher. Q2T and bed alarm maintained for safety.
[2024-07-04] MEDS: LOVENOX 40 MG SC (18:09)
[2024-07-04] MEDS: LIPITOR 80 MG PO (18:09)
[2024-07-04 18:20] LABS: Glucose - Point of Care 151 mg/dl (70-99)
--- NOTE | 2024-07-04 21:05 | PTCARENOTE ---
Caring for pt 7p11p. Oriented, slow to respond, expressive aphasia. NIH score of 15. NSR, remains on RA. Q2T. Unable to move L side. Pt did not speak much but did say 'How am i going to do all this at home' provided some emotional support and
encouragement to patient.
Pt DTV, has not voided since pickett removed at 6AM. BS at 2030 426cc, failed attempt to void multiple times, straight cathed for 450 cloudy yellow urine. DTV 0230. NO other issues at this time. Pt watching baseball, call banegas within reach of R arm.
[2024-07-04 22:11] LABS: Glucose - Point of Care 125 mg/dl (70-99)
[2024-07-05] VITALS (13 sets, daily range): BP systolic 113–149; BP diastolic 60–98; PULSE 111; O2SAT 95
[2024-07-05 05:46] LABS: Hematocrit 38.2 % (39.0-52.0); Hemoglobin 13.8 g/dL (13.0-18.0); Mean Corp Hgb Conc. 36.1 g/dL (33.0-37.0); Mean Corpuscular Hgb 31.2 pg (27.0-31.0); Mean Corpuscular Volume 86.4 fL (80.0-94.0); Mean Platelet Volume 9.2 fL (7.4-10.4); Platelet Count 269 10^3/uL (130-400); Red Blood Cell Count 4.42 10^6/uL (4.70-6.10); Red Cell Dist. Width 12.6 % (11.5-14.5); White Blood Cell Count 7.5 10^3/uL (4.8-10.8)
[2024-07-05 06:22] LABS: Blood Urea Nitrogen 15 mg/dl (9-20); Calcium 8.7 mg/dl (8.4-10.2); Carbon Dioxide 25 mmol/L (22-30); Chloride 102 mmol/L (98-107); Estimated Creatinine Clearance 100 ml/min; Glucose 116 mg/dl (70-99); Potassium 3.7 mmol/L (3.5-5.1); Sodium 136 mmol/L (135-145); eGFR > 60.00
[2024-07-05 08:30] LABS: Glucose - Point of Care 126 mg/dl (70-99)
[2024-07-05] MEDS: NOVOLOG FLEXPEN-LOW RESISTANCE SC ×3 (08:42→17:55)
[2024-07-05] MEDS: NICODERM TRANSDERMAL 21 MG TRANSDERM (09:29)
[2024-07-05] MEDS: ASPIR LOW (ENTERIC COATED) 81 MG PO (09:29)
--- NOTE | 2024-07-05 10:57 | W.PN.HOSP.TC ---
Today's Communication/Plan
-
Medically cleared for discharge to rehab once bed available
Assessment / Plan
Assessment / Plan
Impression:
Patient is 64 years old male history of hypertension, hyperlipidemia, borderline prediabetes, smoker, came into the hospital with numbness left side of his body. Patient has been experiencing paresthesias for several days and this morning he woke
up being dizzy off balance with left-sided weakness. LKN last night. Glucose prehospital 37 and given glucose with improvement. Denies chest pain or shortness of breath. Denies fevers or chills. He had a CTA of the head and neck with
significant right carotid stenosis. Neurology consulted in the ED.
07/02
SCHOOL PSYCHOLOGY PROFESSOR called on 07/01 for worsening neurologic, repeat CT shows progressive stroke, patient upgraded to IMU.
MRI pending, echo pending.
Updated brother by the phone
07/03
Discussed with brothers at bedside
07/04
Patient developed fever, chest x-ray negative, pending blood cultures
07/05
No further fever, blood culture negative.
Patient medically cleared for discharge
Assessment/plan:
Acute worsening ischemic stroke:
Etiology likely large vessel in right MCA territory
Seen CTA of the head and neck and CT scan.
Repeat CT head in 24 hours
Not a candidate for TNK per neurology due to out of time window
PT OT speech therapy eval
If unable to swallow we will do aspirin rectally
Transfer to higher level of care today
N.p.o. and IV fluids for now
If no improvement over 24 hours would consider NG tube
Follow-up further neurology recommendation
Prognosis guarded
07/02
MRI pending, Echo pending, brother updated by phone.
07/03
MRI shows:
Right MCA distribution infarct, as described.
Mild mass effect. Minimal shift of midline approximately 1.5-2 mm.
Subtle likely petechial hemorrhagic component suggested involving the right basal ganglia, head of the caudate nucleus, and anterior-superior right frontal cortex.
Slow flow versus occlusion of the right internal carotid artery.
Asking neurology to review MRI finding if okay to continue with aspirin/Plavix/Lovenox
Echo shows:
Normal biventricular size and systolic function without regional wall motion
abnormality. LVEF 55-60%.
No significant valvular disease.
Possible small PFO by color-flow Doppler.
No prior study available for comparison.
Patient passed swallow eval
Right internal carotid stenosis:
Correlation with his acute stroke
Carotid ultrasound showed:
Right carotid: Near occlusion of the ICA with string-like flow.
Left carotid: Mild to moderate calcified plaque within the bulb and proximal ICA. Any stenosis is less than 50% based upon velocity criteria.
Antegrade flow within both the vertebral arteries.
Appreciate vascular surgery input.
Fever, resolved
Noninvasive lower extremity negative for DVT.
No further fever documented.
Blood culture remains negative.
Discussed with cardiology and neurology, initially CUCA requested but since negative blood culture, No needs for CUCA.
No need to start antibiotic
Hyponatremia:
Improved
Hyperkalemia:
Resolved
Prediabetes mellitus:
Insulin sliding scale
Hyperlipidemia:
Continue statin
Smoker:
On nicotine patch.
CODE STATUS: Full code
DVT prophylaxis: Lovenox
Diet: Minced and moist
Family medication: Discussed with brothers multiple occasion, in the phone and at bedside.
Discussed with son Jesse in the phone.
Total time spent on today's encounter was 75 minutes which included time spent in counseling the patient/family regarding diagnosis and treatment plan as listed above, goals of care, and symptom management. Case was discussed with nursing staff,
specialists, and care coordinators/case management. All labs and imaging personally reviewed by me. Remainder the time spent in detailed review of previous records, lab data, imaging, and other medical provider documentation.
Anticipated Discharge: Within 24 hours
Subjective/Interval History
-
Date of Service: July 05, 2024
No further fever.
Patient is more communicating.
Blood culture remains negative.
Discharge to rehab once bed available.
Objective Data
-
Labs:
Laboratory Results
07/05/24
04:37
WBC 7.5
Hgb 13.8
Hct 38.2 L
Plt Count 269
Sodium 136
Potassium 3.7
Chloride 102
Carbon Dioxide 25
BUN 15
Creatinine 0.7
Glucose 116 H
Calcium 8.7
Vital Signs:
Vital Signs
Temp Pulse Resp BP Pulse Ox
98.5 F 73 19 113/77 91
07/05/24 07:05 07/05/24 10:00 07/05/24 10:00 07/05/24 10:00 07/05/24 10:00
I&O
07/04/24 07/05/24 07/06/24
06:59 06:59 06:59
Output Total 500 / 500 450 / 450
Balance -500 / -500 -450 / -450
Physical Exam
-
General: Slurred Speech and Appears Chronically Ill
HEENT: Atraumatic, Moist Mucous Membranes, No Ptosis, PERRLA and Nose Appears Normal
Respiratory: Rales, Rhonchi and Non Labored Respirations
Cardiac: Regular Rhythm and S1/S2
Breast: Deferred by me
GI: Soft, Nontender, Nondistended and Normal Bowel Sounds
Genito-urinary: No Costovertebral Tender
Musculoskeletal: No Edema
Skin: Warm
Neuro: Slurred Speech and Other (Left-sided hemiparesis)
Psych: Calm
Data Reviewed
-
Diagnostic Radiology: Image personally visualized and interpreted and Report Reviewed by me
CT Scan: Image personally visualized and interpreted and Report Reviewed by me
Ultrasound: Image personally visualized and interpreted and Report Reviewed by me
MRI: Image personally visualized and interpreted and Report Reviewed by me
Medical Tests (Nuc Med, Echo etc): Image personally visualized and interpreted and Report Reviewed by me
Labs: Labs Reviewed by me
Old Records: Reviewed
[2024-07-05 13:04] LABS: Glucose - Point of Care 112 mg/dl (70-99)
--- NOTE | 2024-07-05 14:26 | PTCARENOTE ---
Pt presents as assessed. NIH and neuro checks as documented. NSR on tele monitor. Pt extremely tearful at times, emotional support provided. D/w Dr. Garces, order placed by for psych consult. Son at bedside, updated on plan of care. Q2T and bed
alarm maintained for safety.
--- NOTE | 2024-07-05 14:58 | CM ---
Addendum entered by Jannette Thomas RN 07/05/24 15:19:
Offered to meet with son Andres today however he came in with DIL and left without asking for CM. Attempted to speak with son by phone after he left and DIL said they could not talk because they were driving.
Original Note:
Patient with Dx CVA. Room air. T 99.6 today. Receiving IVF. Dysphagia diet. Physiatry Consult recommends acute rehab. PT/OT recommend acute rehab. Psych Consult order today.
Spoke with patient's son Andres Strong (previously Bharathi Tae);
he came in and saw his father today and thought he was doing worse than before.
he agrees with the patient going to [facility] at discharge and is aware that it will probably be tomorrow. IMM completed and copy sent to his email at [email or web address].
Discussed need for possible terminal superintendent care at home with caregivers or in a SNF.
Son confirms patient does not have a POA and no one is setup to assist him with his finances for LTC.
Spoke with [facility]; they will have an available bed tomorrow. They will review his clinical again tomorrow before accepting.
Plan probable [facility] tomorrow.
--- NOTE | 2024-07-05 15:41 | CON.MD ---
Consultation - Medical
-
patient seen chart reviewed. spoke with nursing. obtaining hx from the patient was difficult. at times he would answer the question perfectly clearly with well articulated words. at other times he would stare at me and say nothing. several times i
wrote the questions down for him and it was the same...sometimes he answered appropriately other times he did not. he did not know where he was 'a house' and did not respond when i asked him the year. he did at times break into a sob and more than
once said something like 'i'll never work again'clearly he is well aware of the sequelae of his stroke and his current limitations. the patient is a 64 year old male who experienced paresthesias for several days. on the day of admit he felt
tingling in his l side and felt 'drunk' although he had not consumed etoh and off balance as well as left sided weakness. ems was called. his glucose was 37 when the emt's tested it and he was given d50. he was hospitalized for presumed stroke. he
has hx smoking. the patient was found to have a right mca infarct. whild he was hospitalized the stroke sx recurred and imaging showed that the area had enlarged. he was not deemed a candidate for tpa intervention. he has been seen by vascular
surgery as well and they did not deem him a surgical candidate. cardiology did not recommend CUCA at this point. the patient has hx htn hld and is a smoker. at this point patient noted to be hemiparetic. he did pass video swallow. this consult
was ordered as patient appeared to be depressed. as stated he did break into short sobs at some points today and expressed fear he would 'never work again'. he denied that he would try to take his own life. there is nothing to suggest ken
psychosis i did talk to his brother. brother told me he too noted that patient's sensorium changes. brother tells me patient has significant deafness and with his hearing aids he does much better. that may be a part of the problem.
past medical hx patient w hx htn hld smoker. found to have r mca stroke see above. hgb 13.8 chemistry fbs 116 noted patient mildly febrile 99.6 bp 135/83
past psych hx i asked patient repeatedly both verbally and writing the questions down but i could not get an answer from him. brother told me 'He probably does not know what a psychiatrist is.' ( i asked patient if he had had depression or
anxiety....brother says no not more than 'normal person')
substance abuse smokes cigarettes. some lorrainejaren brother says occasional beer not to excess maybe once or twice weekly
family hx non contributory
social hx patient resides in his own home. he has a friend living with him. he has a son who is expecting his first child.. patient is a . patient is one of six kids five boys and one female.i spoke to brother mariya who seems supportive.
the sister is and patient cried as he told me this. patient is a vet ..he told me the following who served in [employer] for four years and [employer] for two years.
mse alert he did not answer when i asked him the year. he told me he was in 'a house' but i am not sure after talking to brother if hearing impairment was part of the problem. he answered many ? appropriately other times he just stared. he did
seem very upset and sad. i don't know at this point if this represents depression or a normal response to a catastrophic life event. he denies he would try to hurt himself. intelligence average likely...re insight judgment i have no reason to say
he is impaired so far as he seems cooperative
dx adjustment disorder
recommendations i would not jump to put patient on antidepressant medications just yet. he seems to me to be having a normal response to catastrophe. would attempt to support him through this in the next few days reassessing ongoing re need for
antidepressants. i tried to encourage him to work hard in rehab and reassured him that great improvement can occur w pt. would also get his hearing aids so we can be sure he is hearing questions. psych will follow
[2024-07-05] MEDS: LIPITOR 80 MG PO (17:55)
[2024-07-05] MEDS: LOVENOX 40 MG SC (17:55)
[2024-07-05 18:05] LABS: Glucose - Point of Care 132 mg/dl (70-99)
[2024-07-05 21:16] LABS: Glucose - Point of Care 127 mg/dl (70-99)
[2024-07-06] VITALS (8 sets, daily range): BP systolic 112–144; BP diastolic 55–97
--- NOTE | 2024-07-06 02:42 | PTCARENOTE ---
NIH and neuro checks as documented. Pt responds appropriately at times, inappropriately at times, and not at all at times. Pt transferred from chair to bed with assist of ceiling lift. L multipodus boot in place. Pt continues with inability to void,
bladder scans continued. SCDs in place. Call banegas within reach. Frequent rounding in place.
[2024-07-06 04:22] LABS: Hematocrit 38.4 % (39.0-52.0); Hemoglobin 13.6 g/dL (13.0-18.0); Mean Corp Hgb Conc. 35.4 g/dL (33.0-37.0); Mean Corpuscular Hgb 30.6 pg (27.0-31.0); Mean Corpuscular Volume 86.3 fL (80.0-94.0); Mean Platelet Volume 9.3 fL (7.4-10.4); Platelet Count 276 10^3/uL (130-400); Red Blood Cell Count 4.45 10^6/uL (4.70-6.10); Red Cell Dist. Width 12.2 % (11.5-14.5); White Blood Cell Count 9.4 10^3/uL (4.8-10.8)
[2024-07-06 04:43] LABS: Blood Urea Nitrogen 16 mg/dl (9-20); Calcium 8.7 mg/dl (8.4-10.2); Carbon Dioxide 25 mmol/L (22-30); Chloride 105 mmol/L (98-107); Estimated Creatinine Clearance 100 ml/min; Glucose 107 mg/dl (70-99); Potassium 3.9 mmol/L (3.5-5.1); eGFR > 60.00
[2024-07-06 04:50] LABS: Sodium 136 mmol/L (135-145)
[2024-07-06 07:43] LABS: Glucose - Point of Care 108 mg/dl (70-99)
[2024-07-06] MEDS: NOVOLOG FLEXPEN-LOW RESISTANCE SC ×2 (07:56→12:56)
[2024-07-06] MEDS: NICODERM TRANSDERMAL 21 MG TRANSDERM (08:32)
[2024-07-06] MEDS: ASPIR LOW (ENTERIC COATED) 81 MG PO (08:32)
--- NOTE | 2024-07-06 09:44 | W.PN.UPDATE ---
Update Note
Progress Note Update
I tried to talk to the patient but he did not respond verbally. He has very flat affect most of the time and there were periods when he started to cry but again did not communicate.
Dr Sheets reports the has no previous psychiatric history so if there is depression it has to be related to the stroke.
Will will continue F/U; at this point I would not start antidepressants as I was not able to communicate with him but we will have to keep that possibility in mind.
--- NOTE | 2024-07-06 11:16 | CM ---
Patient with Dx CVA. Room air. L multipodus boot in place per nurse. Dysphagia diet. Physiatry Consult recommends acute rehab. PT/OT recommend acute rehab. Seen by Psych for possible depression.
Spoke with [facility]; they ar able to accept the patient today. The ph for report [phone] and fax [phone]. They are hoping to receive him around 12:30pm.
Met with patient, spoke with son Andres and patient's brother Josias; patient alert but not responding verbally with CM this morning. Son & brother agree to [facility] today.
Discussed with Josias the need for someone to assist patient with his affairs including finances- Josias said he had not thought about that but will discuss with his siblings. He shared that patient owns his house and has mortgage payments.
Discussed with Josias the need for possible long term care social worker care at home with caregivers or in a SNF after discharge from [facility], depending on his progress. He responded that family will discuss and assist as needed.
IMM completed yesterday with son.
Plan [facility] today.
[2024-07-06 12:52] LABS: Glucose - Point of Care 127 mg/dl (70-99)
--- NOTE | 2024-07-06 13:06 | W.PN.HOSP.TC ---
Today's Communication/Plan
-
Discharge to rehab today
Assessment / Plan
Assessment / Plan
Impression:
Patient is 64 years old male history of hypertension, hyperlipidemia, borderline prediabetes, smoker, came into the hospital with numbness left side of his body. Patient has been experiencing paresthesias for several days and this morning he woke
up being dizzy off balance with left-sided weakness. LKN last night. Glucose prehospital 37 and given glucose with improvement. Denies chest pain or shortness of breath. Denies fevers or chills. He had a CTA of the head and neck with
significant right carotid stenosis. Neurology consulted in the ED.
07/02
CORPORATE COUNSELOR called on 07/01 for worsening neurologic, repeat CT shows progressive stroke, patient upgraded to IMU.
MRI pending, echo pending.
Updated brother by the phone
07/03
Discussed with brothers at bedside
07/04
Patient developed fever, chest x-ray negative, pending blood cultures
07/05
No further fever, blood culture negative.
Patient medically cleared for discharge
Assessment/plan:
Acute worsening ischemic stroke:
Etiology likely large vessel in right MCA territory
Seen CTA of the head and neck and CT scan.
Repeat CT head in 24 hours
Not a candidate for TNK per neurology due to out of time window
PT OT speech therapy eval
If unable to swallow we will do aspirin rectally
Transfer to higher level of care today
N.p.o. and IV fluids for now
If no improvement over 24 hours would consider NG tube
Follow-up further neurology recommendation
Prognosis guarded
07/02
MRI pending, Echo pending, brother updated by phone.
07/03
MRI shows:
Right MCA distribution infarct, as described.
Mild mass effect. Minimal shift of midline approximately 1.5-2 mm.
Subtle likely petechial hemorrhagic component suggested involving the right basal ganglia, head of the caudate nucleus, and anterior-superior right frontal cortex.
Slow flow versus occlusion of the right internal carotid artery.
Asking neurology to review MRI finding if okay to continue with aspirin/Plavix/Lovenox
Echo shows:
Normal biventricular size and systolic function without regional wall motion
abnormality. LVEF 55-60%.
No significant valvular disease.
Possible small PFO by color-flow Doppler.
No prior study available for comparison.
Patient passed swallow eval
Right internal carotid stenosis:
Correlation with his acute stroke
Carotid ultrasound showed:
Right carotid: Near occlusion of the ICA with string-like flow.
Left carotid: Mild to moderate calcified plaque within the bulb and proximal ICA. Any stenosis is less than 50% based upon velocity criteria.
Antegrade flow within both the vertebral arteries.
Appreciate vascular surgery input.
Fever, resolved
Noninvasive lower extremity negative for DVT.
No further fever documented.
Blood culture remains negative.
Discussed with cardiology and neurology, initially CUCA requested but since negative blood culture, No needs for CUCA.
No need to start antibiotic
Hyponatremia:
Improved
Hyperkalemia:
Resolved
Prediabetes mellitus:
Insulin sliding scale
Hyperlipidemia:
Continue statin
Smoker:
On nicotine patch.
CODE STATUS: Full code
DVT prophylaxis: Lovenox
Diet: Minced and moist
Family medication: Discussed with brothers multiple occasion, in the phone and at bedside.
Discussed with son Jesse in the phone.
Total time spent on today's encounter was 75 minutes which included time spent in counseling the patient/family regarding diagnosis and treatment plan as listed above, goals of care, and symptom management. Case was discussed with nursing staff,
specialists, and care coordinators/case management. All labs and imaging personally reviewed by me. Remainder the time spent in detailed review of previous records, lab data, imaging, and other medical provider documentation.
Anticipated Discharge: Today
Subjective/Interval History
-
Date of Service: July 06, 2024
Patient looks tired.
Minimal communication today.
Plan to discharge to rehab.
Objective Data
-
Labs:
Laboratory Results
07/06/24
03:58
WBC 9.4
Hgb 13.6
Hct 38.4 L
Plt Count 276
Sodium 136
Potassium 3.9
Chloride 105
Carbon Dioxide 25
BUN 16
Creatinine 0.7
Glucose 107 H
Calcium 8.7
Vital Signs:
Vital Signs
Temp Pulse Resp BP Pulse Ox
98.0 F 81 22 129/75 94
07/06/24 11:50 07/06/24 08:00 07/06/24 08:00 07/06/24 06:00 07/05/24 22:42
I&O
07/05/24 07/06/24 07/07/24
06:59 06:59 06:59
Output Total 450 / 450 450 / 450
Balance -450 / -450 -450 / -450
Physical Exam
-
General: Slurred Speech and Appears Chronically Ill
HEENT: Atraumatic, Moist Mucous Membranes, No Ptosis, PERRLA and Nose Appears Normal
Respiratory: Rales, Rhonchi and Non Labored Respirations
Cardiac: Regular Rhythm and S1/S2
Breast: Deferred by me
GI: Soft, Nontender, Nondistended and Normal Bowel Sounds
Genito-urinary: No Costovertebral Tender
Musculoskeletal: No Edema
Skin: Warm
Neuro: Slurred Speech and Other (Left-sided hemiparesis)
Psych: Calm
Data Reviewed
-
Diagnostic Radiology: Image personally visualized and interpreted and Report Reviewed by me
CT Scan: Image personally visualized and interpreted and Report Reviewed by me
Ultrasound: Image personally visualized and interpreted and Report Reviewed by me
MRI: Image personally visualized and interpreted and Report Reviewed by me
Medical Tests (Nuc Med, Echo etc): Image personally visualized and interpreted and Report Reviewed by me
Labs: Labs Reviewed by me
Old Records: Reviewed
--- NOTE | 2024-07-06 13:23 | PTCARENOTE ---
report given to Cindy, Nurse at [facility]. Pt to go to rm [id number]. Nurse at [facility] understanding of patient having urinary retention as Dr. Carolina requested.
== END 2024-07-06 14:14 | DRG 64 ==
LOC: IMU 13:17
PROVIDERS: Physician Assistant; Psychiatry & Neurology Neurology; Registered Nurse; ADMITTING PHYSICIAN Hospitalist; ATTENDING PHYSICIAN General Practice; CONSULT PHYSICIAN Physical Medicine & Rehabilitation; CONSULT PHYSICIAN Psychiatry & Neurology Clinical Neurophysiology; CONSULT PHYSICIAN Psychiatry & Neurology Psychiatry; EMERGENCY PHYSICIAN Student in an Organized Health Care Education/Training Program; OTHER PHYSICIAN Student in an Organized Health Care Education/Training Program; OTHER PHYSICIAN Surgery Vascular Surgery
DX: I63.511 Cerebral infarction due to unspecified occlusion or stenosis of right middle cerebral artery (principal); G93.6 Cerebral edema; E87.1 Hypo-osmolality and hyponatremia; G81.94 Hemiplegia, unspecified affecting left nondominant side; R41.4 Neurologic neglect syndrome; I10 Essential (primary) hypertension; E78.00 Pure hypercholesterolemia, unspecified; F17.210 Nicotine dependence, cigarettes, uncomplicated; I65.21 Occlusion and stenosis of right carotid artery; R73.03 Prediabetes; E78.5 Hyperlipidemia, unspecified; F32.A Depression, unspecified; E87.5 Hyperkalemia; Z91.148 Patient's other noncompliance with medication regimen for other reason; R13.10 Dysphagia, unspecified; R29.810 Facial weakness; R47.01 Aphasia
CPT/HCPCS: 70450; 70496; 70498; 70551; 71045; 72170; 74018; 74230; 80048; 80053; 80061; 81003; 81015; 82550; 82962; 83036; 84484; 85025; 85027; 85610; 85730; 87040; 87086; 92507; 92523; 92526; 92610; 92611; 93005; 93306; 93880; 93970; 95816; 97110; 97112; 97163; 97167; 97530; 97535; 99285; Q9950; Q9967